=== PATIENT | female | born 1975 | race Caucasian/White ===

== ENCOUNTER 2018-05-14 00:23 | Outpatient (CLI) | payer MEDICAID, SELFPAY ==
--- NOTE | 2018-05-14 12:39 | DI.REPORT_ITS ---
SYMPTOMS/DIAGNOSIS: SCREENING, Z12.31, MOTHER DIAGNOSED WITH MELENDEZ SYNDROME BILATERAL SCREENING MAMMOGRAM: Mammograms were interpreted according to the usual protocol including computer analysis with CAD system, tomosynthesis and C view imaging. The patient states previous exam in [place], [place], which was unable to be located. The breasts are composed of heterogeneously dense fibroglandular tissue, breast density category C. No suspicious masses or suspicious microcalcifications are seen. IMPRESSION: Category 1C, negative mammogram. Yearly screening mammography is recommended. [facility] ASSESSMENT OF FINDINGS: Negative. Category 1. Patient will receive a letter notifying them of these results. Bi-RADS category C. The breasts are heterogeneously dense, which may obscure small masses.
== END 2018-05-14 00:24 ==
PROVIDERS: PCP Family Medicine; Visit Provider Obstetrics & Gynecology Gynecology
DX: Z12.31 Encounter for screening mammogram for malignant neoplasm of breast (principal)
CPT/HCPCS: 77063; 77067

== ENCOUNTER 2018-08-14 08:01 | Emergency (ER) | payer MEDICAID, SELFPAY ==
[2018-08-14 08:41] VITALS: BP 124/87; PULSE 98; RESP 20; TEMP 36.7; O2SAT 98
--- NOTE | 2018-08-14 09:35 | W.ED.GENAD ---
Discharge Plan Disposition Patient Disposition: HOME Condition: Good Discharge Details Chief Complaint: Laceration Clinical Impression: Laceration Primary Care Provider: Hieu Barry ED Provider: Markus Koch Home Meds and New Rx's Prescriptions: No Action diphenhydramine HCl [Z-Sleep] 25 MG capsule 25 mg PO PRN RF: 0 Discharge Instructions Instructions: Laceration (ED) Referrals: [facility] Emergency Dept. [Outside] - Return if symptoms worsen Medical Decision Making Plan to apply LET and close with tissue glue. Pt tolerated closure with tissue glue. Edges well approximated. Wound was cleaned and no FB was visualized or felt. Advised to keep clean and dry. Return if signs of infection develop. HPI General Mode of arrival: ambulatory. Date/Time Provider Initiated Documentation: 08/14/18 09:35. Limitations to Documentation: no limitations. Information obtained by: patient. History of Present Illness 42 year old F presents to the emergency department with the chief complaint of laceration, described as mild, HPI Narrative: 42 y/o female here with c/o right hand laceration. she was preparing to clean her wood stove when she accidental scraped her hand across a piece of plastic/medal edge of her flew. She shows me a picture of the jagged edge of plastic/metal poking out of her stove. Nurse verified her tetanus is up to date. She denies any other injury. Related Data Home Medications Medication Instructions Recorded Confirmed diphenhydramine HCl [Z-Sleep] 25 mg PO PRN 11/15/16 08/14/18 Allergies Allergy/AdvReac Type Severity Reaction Status Date / Time banana Allergy itching Unverified 08/14/18 08:46 eyes latex Allergy rash Unverified 08/14/18 08:46 General Stated Complaint: Laceration JEANETTE: 4 Review of Systems Constitutional Reports as per HPI Integumentary/Breasts Reports wounds (laceration right hand) PFSH Family History Mother Diabetes Essential hypertension Heart disease Hyperlipidemia Neoplasm Asthma Father Diabetes Anxiety Heart disease Neoplasm Cerebrovascular accident Grandfather Diabetes Grandmother Diabetes Cerebrovascular accident Maternal Aunt No problems noted. Brother Diabetes Medical History Abnormal uterine bleeding Insomnia PMDD (premenstrual dysphoric disorder) Surgical History Ligation of fallopian tube cryotherapy (~1994) Exam Const General: cooperative and no acute distress Nutritional Appearance: average body habitus Orientation: alert, awake and oriented x3 Skin Full body images: 1. superficial .25 CM laceration to palm surface. No bleeding. Clear drainage. No redness. Linear with smooth edges. Extrem Right upper extremity: full ROM, normal capillary refill and hand Details: normal capillary refill, neuromotor exam normal, neurosensory exam normal, tendon exam normal, normal ROM of fingers and laceration (.25 cm superficial ); no ecchymosis Course Vital Signs Temperature 36.7 C 08/14/18 08:41 Pulse 98 H 08/14/18 08:41 Respiratory Rate 20 08/14/18 08:41 Blood Pressure 124/87 08/14/18 08:41 Pulse Oximetry 98 08/14/18 08:41 Temperature 36.7 C 08/14/18 08:41 Temperature Source Temporal Artery Scan 08/14/18 08:41 Pulse 98 H 08/14/18 08:41 Respiratory Rate 20 08/14/18 08:41 Respiratory Effort Non-Labored 08/14/18 08:43 Blood Pressure 124/87 08/14/18 08:41 Pulse Oximetry 98 08/14/18 08:41 Oxygen Delivery Method Room Air 08/14/18 08:41 Oxygen Flow Rate 0 08/14/18 08:41 Comment 08/14/18 08:41 Procedures Laceration Laceration 1: Site: hand (.25 superfifical of the velásquez surface. ) Side (If applicable): right Size (cm): 0.25 Description: linear Depth: simple, single layer Local Anesthetic: other anesthetic (LET) Amount of anesthesia used (mL): 0.3 Pre-repair: wound explored (no FB noted) Size (cm): other (tissue glue)
[2018-08-14] MEDS: Lidocaine/Epinephri/Tetracaine Topical Gel 3 ML TP (09:43)
--- NOTE | 2018-08-14 09:44 | ED.GENADUL_ITS ---
Discharge Plan Disposition Patient Disposition: HOME Condition: Good Discharge Details Chief Complaint: Laceration Clinical Impression: Laceration Primary Care Provider: Hieu Barry ED Provider: Markus oKch Home Meds and New Rx's Prescriptions: No Action diphenhydramine HCl [Z-Sleep] 25 MG capsule 25 mg PO PRN RF: 0 Discharge Instructions Instructions: Laceration (ED) Referrals: [facility] Emergency Dept. [Outside] - Return if symptoms worsen Medical Decision Making Plan to apply LET and close with tissue glue. Pt tolerated closure with tissue glue. Edges well approximated. Wound was cleaned and no FB was visualized or felt. Advised to keep clean and dry. Return if signs of infection develop. HPI General Mode of arrival: ambulatory . Date/Time Provider Initiated Documentation: 08/14/18 09:35 . Limitations to Documentation: no limitations . Information obtained by: patient . History of Present Illness 42 year old F presents to the emergency department with the chief complaint of laceration, described as mild, HPI Narrative: 42 y/o female here with c/o right hand laceration. she was preparing to clean her wood stove when she accidental scraped her hand across a piece of plastic/medal edge of her flew. She shows me a picture of the jagged edge of plastic/metal poking out of her stove. Nurse verified her tetanus is up to date. She denies any other injury. Related Data Home Medications Medication Instructions Recorded Confirmed diphenhydramine HCl [Z-Sleep] 25 mg PO PRN 11/15/16 08/14/18 Allergies Allergy/AdvReac Type Severity Reaction Status Date / Time banana Allergy itching Unverified 08/14/18 08:46 eyes latex Allergy rash Unverified 08/14/18 08:46 General Stated Complaint: Laceration JEANETTE: 4 Review of Systems Constitutional Reports as per HPI Integumentary/Breasts Reports wounds (laceration right hand) PFSH Family History Mother Diabetes Essential hypertension Heart disease Hyperlipidemia Neoplasm Asthma Father Diabetes Anxiety Heart disease Neoplasm Cerebrovascular accident Grandfather Diabetes Grandmother Diabetes Cerebrovascular accident Maternal Aunt No problems noted. Brother Diabetes Medical History Abnormal uterine bleeding Insomnia PMDD (premenstrual dysphoric disorder) Surgical History Ligation of fallopian tube cryotherapy (~1994) Exam Const General: cooperative and no acute distress Nutritional Appearance: average body habitus Orientation: alert, awake and oriented x3 Skin Full body images: 2 1. superficial .25 CM laceration to palm surface. No bleeding. Clear drainage. No redness. Linear with smooth edges. Extrem Right upper extremity: full ROM, normal capillary refill and hand Details: normal capillary refill, neuromotor exam normal, neurosensory exam normal, tendon exam normal, normal ROM of fingers and laceration (.25 cm superficial ); no ecchymosis Course Vital Signs Temperature 36.7 C 08/14/18 08:41 Pulse 98 H 08/14/18 08:41 Respiratory Rate 20 08/14/18 08:41 Blood Pressure 124/87 08/14/18 08:41 Pulse Oximetry 98 08/14/18 08:41 Temperature 36.7 C 08/14/18 08:41 Temperature Source Temporal Artery Scan 08/14/18 08:41 Pulse 98 H 08/14/18 08:41 Respiratory Rate 20 08/14/18 08:41 Respiratory Effort Non-Labored 08/14/18 08:43 Blood Pressure 124/87 08/14/18 08:41 Pulse Oximetry 98 08/14/18 08:41 Oxygen Delivery Method Room Air 08/14/18 08:41 Oxygen Flow Rate 0 08/14/18 08:41 Comment 08/14/18 08:41 Procedures Laceration Laceration 1: Site: hand (.25 superfifical of the velásquez surface. ) Side (If applicable): right Size (cm): 0.25 Description: linear Depth: simple, single layer Local Anesthetic: other anesthetic (LET) Amount of anesthesia used (mL): 0.3 Pre-repair: wound explored (no FB noted) Size (cm): other (tissue glue)
== END 2018-08-14 10:09 | disposition home or self-care (01) ==
LOC: ER 10:35
PROVIDERS: Emergency Provider Nurse Practitioner Family; PCP Family Medicine
DX: S61.411A Laceration without foreign body of right hand, initial encounter (principal); W26.8XXA Contact with other sharp object(s), not elsewhere classified, initial encounter
CPT/HCPCS: 12001

== ENCOUNTER 2019-09-18 14:09 | Outpatient (CLI) | payer MEDICAID, SELFPAY ==
[2019-09-18 14:53] LABS: HGB 14.6 g/dL (12.0-15.5); Mean Corp. HGB Concentration 32.4 g/dL (32.0-36.0); Mean Corpuscular Hemoglobin 29.6 pg (27.0-33.0); Mean Corpuscular Volume 91.1 fL (80-95); Mean Platelet Volume 9.9 fL (8.0-11.0); Platelet Count 347 x1000/uL (130-400); RBC 4.94 m/cumm (4.00-5.20); RBC Distribution Width 13.1 % (11.7-14.6); White Blood Cell Count 11.28 k/cumm (4.4-10.8)
[2019-09-18 15:22] LABS: ALT 30 U/L (14-59); AST 15 U/L (15-37); Albumin 4.4 g/dL (3.4-5.0); Alkaline Phosphatase 74 U/L (46-116); Anion Gap 6.5 mmol/L (3-11); BUN 19 mg/dL (7-18); Bilirubin, Total 0.3 mg/dL (0.2-1.0); CO2 31.5 mmol/L (21.0-32.0); CREATININE 0.92 mg/dL (0.55-1.02); Calcium 9.5 mg/dL (8.5-10.1); Chloride 102 mmol/L (98-107); Glucose 93 mg/dL (74-106); Potassium 4.3 mmol/L (3.5-5.1); Sodium 140 mmol/L (136-145); TSH (W/Ref FT4) 5.11 uIU/mL (0.36-3.74); Total Protein 8.2 g/dL (6.4-8.2)
[2019-09-18 16:10] LABS: FREE T4 0.98 ng/dL (0.76-1.46)
== END 2019-09-18 14:29 ==
PROVIDERS: PCP Family Medicine; Visit Provider Obstetrics & Gynecology Gynecology
DX: R23.2 Flushing (principal)
CPT/HCPCS: 36415; 80053; 85027; 82384; 84439; 84443

== ENCOUNTER 2019-09-21 08:21 | Outpatient (REF) | payer MEDICAID, SELFPAY ==
[2019-09-23 13:58] LABS: Urine Volume 900 mL
== END 2019-09-21 08:41 ==
LOC: LBN 08:21
PROVIDERS: PCP Family Medicine; Visit Provider Obstetrics & Gynecology Gynecology
DX: R23.2 Flushing (principal)
CPT/HCPCS: 81050; 82384

== ENCOUNTER 2019-10-02 09:16 | Outpatient (CLI) | payer MEDICAID, SELFPAY ==
[2019-10-05 10:48] LABS: Thyroglobulin Antibody <15 U/mL (<=60); Thyroperoxidase Antibody <28 U/mL (<=60)
== END 2019-10-02 09:36 ==
PROVIDERS: PCP Family Medicine; Visit Provider Obstetrics & Gynecology Gynecology
DX: E03.9 Hypothyroidism, unspecified (principal)
CPT/HCPCS: 36415; 86376

== ENCOUNTER 2019-11-30 09:18 | Outpatient (CLI) | payer MEDICAID, SELFPAY ==
[2019-11-30 11:08] LABS: TSH (W/Ref FT4) 2.46 uIU/mL (0.36-3.74)
== END 2019-11-30 09:38 ==
PROVIDERS: PCP Family Medicine; Visit Provider Obstetrics & Gynecology Gynecology
DX: E03.9 Hypothyroidism, unspecified (principal)
CPT/HCPCS: 36415; 84443

== ENCOUNTER 2020-03-02 11:07 | Outpatient (REF) | payer MEDICAID, SELFPAY ==
[2020-03-02 12:18] LABS: TSH (W/Ref FT4) 2.74 uIU/mL (0.36-3.74)
== END 2020-03-02 11:27 ==
LOC: LBN 11:07
PROVIDERS: PCP Family Medicine; Visit Provider Obstetrics & Gynecology Gynecology
DX: E03.9 Hypothyroidism, unspecified (principal)
CPT/HCPCS: 84443

== ENCOUNTER 2021-08-08 03:31 | Outpatient (CLI) | payer MEDICAID, SELFPAY ==
[2021-08-08 08:40] LABS: ALT 16 U/L (14-59); AST 12 U/L (15-37); Albumin 4.1 g/dL (3.4-5.0); Alkaline Phosphatase 69 U/L (46-116); BUN 17 mg/dL (7-18); Bilirubin, Total 0.3 mg/dL (0.2-1.0); Calcium 9.7 mg/dL (8.5-10.1); Calculated LDL 201 mg/dL (<100); Chloride 104 mmol/L (98-107); Cholesterol 275 mg/dL (<200); Estimated GFR 59.43 (mL/min/1.73m2); Glucose 93 mg/dL (74-106); HDL Cholesterol 36 mg/dL (40-60); Potassium 4.3 mmol/L (3.5-5.1); Sodium 141 mmol/L (136-145); TSH (W/Ref FT4) 2.51 uIU/mL (0.36-3.74); Total Protein 7.7 g/dL (6.4-8.2); Triglyceride 190 mg/dL (<150)
[2021-08-15 13:48] LABS: Testosterone, Free 2.5
[2021-08-15 13:49] LABS: Testosterone, Total 26
== END 2021-08-08 03:32 | disposition home or self-care (01) ==
LOC: LBO 03:31
PROVIDERS: PCP Family Medicine; Visit Provider Family Medicine
DX: E03.9 Hypothyroidism, unspecified (principal); R68.82 Decreased libido; E28.319 Asymptomatic premature menopause
CPT/HCPCS: 36415; 80053; 80061; 84402; 84403; 84443

== ENCOUNTER 2021-08-10 01:01 | Outpatient (CLI) | payer MEDICAID, SELFPAY ==
--- NOTE | 2021-08-10 09:15 | DI.MAMMO_ITS ---
Exam(s) MAMMO SCREENING EXAM: MAMMO SCREENING CLINICAL HISTORY: screening,Z12.39. TECHNIQUE: Bilateral full field digital CC and MLO mammographic images were obtained with 3D tomosyn thesis and utilizing computer aided detection (CAD). COMPARISON: Prior mammogram of May 2018 FINDINGS: The fibroglandular tissue pattern is again noted be moderately dense, this decreasing the sensitivity of the mammogram for finding hidden underlying lesions. There are no CAD designations. There are obvious no new spiculated masses nor malignant appearing microcalcification groups. There is no significant architectural distortion nor skin thickening-retraction. IMPRESSION: Dense bilateral fibroglandular tissue. No obvious radiographic evidence of malignancy no significant change compared to the mammogram of May 2018 BI-RADS Category 1 - Negative Breast Density - Category C - Heterogeneously dense Breast density Category C or D implies that the patient has dense breast tissue. Dense breast tissue can make it harder to find cancer on a mammogram. Dense breast tissue is also associated with an incr eased risk of breast cancer. This information about the result of the mammogram report was provided to the patient to raise their awareness. Use this report when you speak with the patient about their risks for breast cancer, which includes their family history. At that time, you may recommend additional screening tests (Ultrasoun d or MRI) as these tests may add significant information. A negative radiographic report should not delay biopsy if a dominant or clinically suspicious mass is present. Up to ten percent of cancers are not identified on mammography. A negative report may reinforce clinical impression. Adenosis and dense breasts may obscure an underlying neoplasm. False positive reports average 6 to 10%. Patient will receive a letter notifying them of these results.
== END 2021-08-10 01:21 ==
PROVIDERS: PCP Family Medicine; Visit Provider Family Medicine
DX: Z12.31 Encounter for screening mammogram for malignant neoplasm of breast (principal); R92.8 Other abnormal and inconclusive findings on diagnostic imaging of breast
CPT/HCPCS: 77063; 77067

== ENCOUNTER 2023-01-17 10:36 | Outpatient (REF) | payer MEDICAID, SELFPAY ==
--- NOTE | 2023-01-17 08:50 | ENDOMET_PTH ---
PATIENT: Cheli Back LOC: [facility] U#:[id number] AGE/SX: 47/F ROOM: RE01/17/[address]: Belinda Tripp MD : 1975 BED: DIS: 01/17/2023 SPEC #: [id number] RECD: 01/17/23 12:59 STATUS: JEREMY REQ #: [id number] SUBHA: 01/17/23 08:[address]: Belinda Tripp DEPT: Surgical Specimen RECD BY: Gardenia Clay ENTERED: 01/17/23 12:59 SP TYPE: Endomet OTHR DR: Hieu Barry DO Tissues: 1 - ENDOMETRIUM BX/DELMYETTE Procedures: GROSS AND MICRO LEVEL 4 Comments: [id number]
== END 2023-01-17 10:37 | disposition home or self-care (01) ==
LOC: LBN 10:36
PROVIDERS: PCP Family Medicine; Visit Provider Obstetrics & Gynecology
DX: N95.0 Postmenopausal bleeding (principal); N85.8 Other specified noninflammatory disorders of uterus
CPT/HCPCS: 88305

== ENCOUNTER 2023-03-05 01:00 | Outpatient (CLI) | payer MEDICAID, SELFPAY ==
--- NOTE | 2023-03-05 07:00 | DI.US_ITS ---
Exam(s) US PELVIS TRANSVAGINAL EXAM: US PELVIS TRANSVAGINAL CLINICAL HISTORY: POSTMENOPAUSAL BLEEDING,N95.0. TECHNIQUE: Transabdominal and transvaginal pelvic ultrasound was performed using standard protocol. COMPARISON: CT ABD PELVIS WITH CONTRAST from 10/30/2017 FINDINGS: UTERUS: Position: Anteverted. Size: 6.7 long by 3.9 AP by 4.1 transverse cm Endometrium: 0.9 cm. It is homogeneous. This is thickened in a postmenopausal patient. Myometrium: Unremarkable. Cervix: Unremarkable. OVARIES: There is limited visualization of the right ovary due to overlying bowel gas. Right: 2.5 x 1.6 x 1.6 cm Cyst or mass: No suspicious cystic or solid masses. Left: 2.4 x 2.1 x 2.8 cm Cyst or mass: No suspicious cystic or solid masses. DOPPLER: Color: Blood flow seen to the left ovary. Evaluation of the right ovary was compromised secondary to overlying bowel gas. CUL-DE-SAC: Free fluid: None. Other: None. IMPRESSION: 1. Normal appearance of the uterus. 2. Thickened endometrial stripe is 0.9 cm in this postmenopausal patient. No definite discrete mass is seen. Further evaluation with follow-up pelvic ultrasound or biopsy should be considered. 3. Unremarkable bilateral ovaries. DATA REPOSITORY:
--- NOTE | 2023-03-05 08:43 | DI.MAMMO_ITS ---
Exam(s) MAMMO SCREENING EXAM: MAMMO SCREENING CLINICAL HISTORY: screening,Z12.39 TECHNIQUE: Bilateral full field digital CC and MLO mammographic images were obtained with 3D tomosyn thesis and utilizing computer aided detection (CAD). COMPARISON: Available for comparison. FINDINGS: Masses/Architectural Distortion: None seen. Microcalcifications: No suspicious pleomorphic-type are seen. Skin Thickening/Nipple Retraction: None. IMPRESSION: 1. No significant interval change with no specific features of malignancy noted. 2. Unless there is more urgent need, screening mammography is recommended, as per [employer] guidelines. BI-RADS Category 1 - Negative Breast Density - Category C - Heterogeneously dense Breast density category C or D implies that the patient has dense breast tissue. Dense breast tissue is very common and is not abnormal but dense breast tissue can make it harder to find cancer on a ma mmogram. Also, dense breast tissue may increase their breast cancer risk. This information about the result of the mammogram report was provided to the patient to raise their awareness. Use this report when you speak with the patient about their risks for breast cancer, which includes their family hist ory. At that time, you may recommend for more screening tests (Ultrasound or MRI) as they might be us eful based on their risk. A negative radiographic report should not delay biopsy if a dominant or clinically suspicious mass is present. Up to ten percent of cancers are not identified on mammography. A negative report may reinforce clinical impression. Adenosis and dense breasts may obscure an underlying neoplasm. False positive reports average 6 to 10%. Patient will receive a letter notifying them of these results.
== END 2023-03-05 01:20 ==
LOC: DI 01:01
PROVIDERS: PCP Family Medicine; Visit Provider Obstetrics & Gynecology
DX: Z12.31 Encounter for screening mammogram for malignant neoplasm of breast (principal); N95.0 Postmenopausal bleeding
CPT/HCPCS: 77063; 77067; 76830; 76856

== ENCOUNTER 2023-06-02 06:47 | Emergency (ER) | payer MEDICAID, SELFPAY ==
[2023-06-02 06:53] VITALS: BP 118/65; PULSE 79; RESP 16; TEMP 36.8; O2SAT 97
--- NOTE | 2023-06-02 07:00 | DI.CT_ITS ---
Exam(s) CT ABDOMEN PELVIS W EXAM: CT ABDOMEN PELVIS W CLINICAL HISTORY: n/v, lower abdominal pain. TECHNIQUE: Imaging Protocol: Axial computed tomography images with coronal and sagittal reformatted images were created and reviewed CONTRAST MATERIAL: Intravenous: Omnipaque-350 100cc Oral: None COMPARISON: CT ABD PELVIS WITH CONTRAST from 10/30/2017 FINDINGS: VISUALIZED LUNG BASES: No nodules nor pleural effusions evident. ABDOMEN: There is no ascites. LIVER: There are no focal hepatic lesions evident. No dilated intrahepatic ducts. GALLBLADDER/BILIARY: No obvious gallbladder pathology. CBD is not dilated. PANCREAS: No evidence of pancreatic mass nor dilatation of the pancreatic duct. SPLEEN: Spleen is not enlarged. No obvious intrasplenic lesions. Splenic and portal veins are paten t. ADRENALS: There are no significant adrenal masses. KIDNEYS:No cysts evident. No solid renal masses. No calculi nor hydronephrosis.. ABDOMINAL AORTA: Abdominal aorta is not enlarged. LYMPH NODES:There is no retroperitoneal nor paraaortic adenopathy. ABDOMINAL WALL: No evidence of significant anterior abdominal wall nor inguinal hernia. GI: There is a mild enteritis pattern seen throughout these small bowel loops. Small bowel diameters are upper normal. There is diffuse small bowel wall fold thickening. There may be slight involveme nt of the right-side of the colon. There is no ascites. PELVIS: GI: No evidence of appendicitis.No evidence of sigmoid diverticulitis. LYMPH NODES: There is no intrapelvic nor inguinal adenopathy. REPRODUCTIVE: Uterus normal size and anteverted. Right adnexa unremarkable. There is a cyst in the left ovary which measures 2 by 1.8 cm and there is also a 6 x 5 mm adjacent calcification. No fat de nsity. URINARY BLADDER: No calculi nor obvious masses evident OSSEOUS: No fractures and no significant osseous lesions. No evidence of sacroiliitis. IMPRESSION: 1. There is a nonspecific small bowel enteritis pattern. Also possible mild colitis involving the as cending-right side of the colon. No evidence of appendicitis nor diverticulitis. No ascites. RADIATION DOSE DELIVERED: 527.81mGy.cm Total DLP DATA REPOSITORY: All CT scans at this facility are submitted to the National Radiology Data Registry (NRDR) Dose Index Registry (DIR) with the [employer] (A[employer]). RADIATION OPTIMIZATION: All CT scans at this facility use at least one of these dose optimization te chniques: automated exposure control; mA and/or kV adjustment per patient size (includes targeted exa ms where dose is matched to clinical indication); or iterative reconstruction.
--- NOTE | 2023-06-02 07:08 | ED.GENADUL_ITS ---
Discharge Plan Discharge Details Chief Complaint: Nausea/Vomit/Diar Clinical Impression: Nausea vomiting and diarrhea, Abdominal pain Primary Care Provider: Hieu Barry ED Provider: Markus Bullard Home Meds and New Rx's Prescriptions: No Action estradiol 0.01 % (0.1 mg/gram) cream 1 g vaginal DAILY Qty: 42.5 0RF Rx Instructions: for 14 days. Then decrease use to twice weekly. diphenhydramine HCl [Z-Sleep] 25 MG capsule 25 mg PO PRN clonidine HCl 0.1 mg tablet 0.1 mg PO QHS Qty: 60 5RF levothyroxine [Levoxyl] 25 mcg tablet 25 mcg PO DAILY Qty: 60 5RF atorvastatin 20 mg tablet 20 mg PO QHS Qty: 90 3RF Medical Decision Making 47 yo female with hx of anxiety, daily marijuana use, who comes in with cc of n/v/d for 3 days worse in the morning. Denies fevers, chills, known sick contacts, recent travel. She can't think of anything that makes the symptoms better or worse. She is stable on arrival. Her abdomen is soft but she is tender in the rlq and llq without guarding or rebound. Suspect gastroenteritis given the diarrhea associated with it, but given her tenderness on exam will proceed with cbc, cmp, lipase and ct abd/pelvis to evaluate for diverticulitis and appendicitis, unlikely sbo with the diarrhea. This could be cannabinoid hyperemesis syndrome but will exclude other etiologies first pt signed out to oncoming provider pending labs, imaging and reassessment. Differential Diagnosis Differential Diagnosis: gastroenteritis, diverticulitis, appendicitis Medical Records Medical records reviewed: Yes I reviewed the patient's medical records. Lab Data Lab results reviewed: Yes I reviewed the patient's lab results. HPI General Mode of arrival: ambulatory . Date/Time Provider Initiated Documentation: 06/02/23 06:48 . Limitations to Documentation: no limitations . Information obtained by: patient . History of Present Illness 47 year old F presents to the emergency department with the chief complaint of n/v/d, described as moderate, Patient started experiencing this day(s) (3) and it has been constant. No relieving factors improve symptom(s), No exacerbating factors reported . Patient did receive the following treatments prior to arrival, none Related Data Home Medications Medication Instructions Recorded Confirmed diphenhydramine HCl 25 mg capsule 25 mg PO PRN 11/15/16 06/02/23 (Z-Sleep) clonidine HCl 0.1 mg tablet 0.1 mg PO QHS #60 tabs 08/09/22 06/02/23 levothyroxine 25 mcg tablet 25 mcg PO DAILY #60 tabs 12/24/22 06/02/23 (Levoxyl) estradiol 0.01% (0.1 mg/gram) 1 g vaginal DAILY #42.5 grams 03/13/23 06/02/23 vaginal cream atorvastatin 20 mg tablet 20 mg PO QHS #90 tabs 05/06/23 06/02/23 Previous Rx's Medication Instructions Recorded clonidine HCl 0.1 mg tablet 0.1 mg PO QHS #60 tabs 08/09/22 levothyroxine 25 mcg tablet 25 mcg PO DAILY #60 tabs 12/24/22 (Levoxyl) estradiol 0.01% (0.1 mg/gram) 1 g vaginal DAILY #42.5 grams 03/13/23 vaginal cream atorvastatin 20 mg tablet 20 mg PO QHS #90 tabs 05/06/23 Allergies Allergy/AdvReac Type Severity Reaction Status Date / Time capsaicin Allergy Severe rash, Verified 06/02/23 06:57 difficulty breathing banana Allergy itching Verified 06/02/23 06:57 eyes latex Allergy rash Verified 06/02/23 06:57 General Stated Complaint: Nausea/Vomit/Diar JEANETTE: 3 Review of Systems All systems reviewed & are unremarkable except as noted in HPI and below Constitutional Constitutional: Denies chills, Denies fever(s) and Denies weakness Cardiovascular Cardiovascular: Denies chest pain and Denies dyspnea Respiratory Respiratory: Denies cough and Denies dyspnea Gastrointestinal Gastrointestinal: Reports abdominal pain, Reports nausea and Reports vomiting Genitourinary Genitourinary: Denies dysuria Integumentary/Breasts Skin/Breast: Denies rash Neurologic Neurologic: Denies weakness PFSH All Active Problems (Updated 06/02/23 @ 07:12 by Markus Bullard MD) Hypothyroidism (acquired) (Acute) 10/02/2019 TSH 5.11. FT4 0.98 11/30/2019. Symptoms improved with 25 MCG Levoxyl dose Hyperlipidemia (Acute) Postmenopausal atrophic vaginitis (Acute) Nausea vomiting and diarrhea (Acute) Abdominal pain (Acute) Medical History (Updated 06/02/23 @ 07:12 by Markus Bullard MD) Anxiety (10/18/17) Depression (10/18/17) Family history of uterine cancer pt's mom and several aunts and MGM. Her mom has a genetic mutation. Pt has not been tested. Insomnia hx of sleepwalking. Postmenopausal bleeding Started 01/11 - normal sono and endo bx. Should call if returns Surgical History (Updated 07/30/18 @ 14:37 by [employer]) cryotherapy (~1994) due to abnormal pap so had cryotherapy RH Ligation of fallopian tube Family History (Updated 01/17/23 @ 09:06 by Belinda Tripp MD) Mother Diabetes Essential hypertension Heart disease Hyperlipidemia Neoplasm Uterine cancer 2017, carrier of [place] Syndrome Had hysterectomy, no chemo/radiation Asthma Father , Lymphoma Diabetes Anxiety Heart disease Neoplasm Stroke Grandfather Diabetes Grandmother Diabetes Stroke Maternal Aunt , Breast CA. Neoplasm Several aunts with uterine cancer as well Brother Diabetes Social History (Updated 07/17/21 @ 14:08 by Zuri Acuna LPN) Smoking/Tobacco Use Status: Current every day Tobacco Type: e-cigarettes Smokeless tobacco user: other Smoking risk assessment performed?: Yes Alcohol Intake: never Drug use: Daily Substance use type: marijuana and other Details: edibles Household members: significant other Housing: house Communication Needs: None Education Level: college Pets and animals: Yes Pets and animals: cat(s) and dog(s) What is your relationship status?: living with partner Panel score (0-1 are the most socially isolated patients): 1 What type of physical activity do you participate in: walking Frequency: daily Do you feel safe at home: Yes Do you feel safe in your relationship?: Yes Female Reproductive History Menstrual Date of menopause: 11/14/19 History History 4 Para Hx # Term Pregnancies 3 Multiple births Hx # Pregnancies Ectopic pregnancies AB induced Hx Number of Living Children AB spontaneous Exam Const General: no acute distress Orientation: alert HENMT Head: normal to inspection Ears: external ears normal General nose exam: external nose normal Mouth: moist mucous membranes Eyes General: appearance normal, both eyes and all related structures Neck Neck: normal visual inspection Resp Effort & Inspection: normal respiratory effort and able to speak in complete sentences Cardio Rate: regular rate GI Palpation: soft, not firm, no guarding and tender Skin General skin exam: no rashes or lesions noted Neuro General: patient alert and patient oriented x3 Extrem General: normal to inspection Psych Mental Status: mental status grossly normal Course Vital Signs Vital signs: Vital Signs Temperature 36.8 C 06/02/23 06:53 Pulse 79 06/02/23 06:53 Respiratory Rate 16 06/02/23 06:53 Blood Pressure 118/65 06/02/23 06:53 Pulse Oximetry 97 06/02/23 06:53 Temperature 36.8 C 06/02/23 06:53 Temperature Source Oral 06/02/23 06:53 Pulse 79 06/02/23 06:53 Respiratory Rate 16 06/02/23 06:53 Respiratory Effort Normal, Non-Labored 06/02/23 06:57 Blood Pressure 118/65 06/02/23 06:53 Blood Pressure Position Sitting 06/02/23 06:53 Pulse Oximetry 97 06/02/23 06:53 Oxygen Delivery Method Room Air 06/02/23 06:53 Oxygen Flow Rate 0 06/02/23 06:53
[2023-06-02] MEDS: Droperidol 5 MG/2 ML VIAL 2.5 MG IVP (07:18)
[2023-06-02] MEDS: Normal Saline 1,000 ML 1000 ML IV (07:18)
[2023-06-02 07:24] LABS: Abs Immature Grans 0.03 10^3/uL (0.0-0.06); Absolute Eosinophil Count 0.31 10^3/uL (0.0-0.7); Absolute Lymphocyte Count 2.09 10^3/uL (1.2-3.4); Absolute Monocyte Count 0.73 10^3/uL (0.1-0.8); Absolute Neutrophil Count 10.81 10^3/uL (1.2-6.7); Basophils % 0.4; Eosinophils % 2.2; HGB 13.9 g/dL (11.2-15.7); Immature Grans % 0.2; Lymphocytes % 14.9; MCH 29.3 pg (27.0-33.0); MCHC 32.3 % (32.0-36.0); MCV 91 fL (80-95); MPV 9.5 fL (8.0-11.0); Monocytes % 5.2; Neutrophils % 77.1; Platelet Count 305 10^3/uL (130-400); RBC 4.74 10^6/uL (3.93-5.22); RDW 12.7 % (11.7-14.6); RDW-SD 42.4 fL; WBC 14.02 10^3/uL (4.4-10.8)
[2023-06-02 07:27] LABS: Absolute Basophil Count 0.06 10^3/uL (0.0-0.2)
[2023-06-02 07:55] LABS: ALT 26 U/L (14-59); AST 22 U/L (15-37); Albumin 4.1 g/dL (3.4-5.0); Alkaline Phosphatase 87 U/L (46-116); Anion Gap 11.5 mmol/L (3-11); BUN 14 mg/dL (7-18); Bilirubin, Total 0.5 mg/dL (0.2-1.0); CO2 24.5 mmol/L (21.0-32.0); CREATININE 0.8 mg/dL (0.55-1.02); Chloride 106 mmol/L (98-107); Estimated GFR 90.27 (mL/min/1.73m2); Glucose 103 mg/dL (74-106); Lipase 63 U/L (16-77); Magnesium 2.2 mg/dL (1.8-2.4); Potassium 3.7 mmol/L (3.5-5.1); Sodium 142 mmol/L (136-145); TSH (W/Ref FT4) 1.33 uIU/mL (0.36-3.74); Total Protein 7.8 g/dL (6.4-8.2)
[2023-06-02] MEDS: LORazepam 2 MG/ML VIAL 1 MG IVP (08:10)
[2023-06-02] MEDS: diphenhydrAMINE 50 MG/ML VIAL 25 MG IVP (08:15)
[2023-06-02 08:19] LABS: Bilirubin Negative (Negative); Blood Negative (Negative); Clarity Clear (Clear); Glucose Negative (Negative); Ketones Negative (Negative); Leukocyte Esterase Negative (Negative); Nitrite Negative (Negative); Specific Gravity <= 1.005 (1.005-1.025); Urobilinogen 0.2 mg/dL (Up to 0.2); pH 5.5 (5-8)
[2023-06-02] MEDS: Normal Saline Flush 10 ML SYR IVP (08:55)
[2023-06-02] MEDS: Normal Saline - Diluent 50 ML VIAL IJ (08:57)
[2023-06-02] MEDS: Omnipaque 350 MG/ML 100 ML BTL IJ (08:59)
--- NOTE | 2023-06-02 09:24 | DI.VRAD_ITS ---
PROCEDURE INFORMATION: Exam: CT Abdomen And Pelvis With Contrast Exam date and time: 06/02/2023 8:59 AM Age: 47 years old Clinical indication: Other: N/v, lower abdominal pain TECHNIQUE: Imaging protocol: Computed tomography of the abdomen and pelvis with contrast. Radiation optimization: All CT scans at this facility use at least one of these dose optimization techniques: automated exposure control; mA and/or kV adjustment per patient size (includes targeted exams where dose is matched to clinical indication); or iterative reconstruction. Contrast material: OMNIPAQUE 350; Contrast volume: 80 ml; Contrast route: INTRAVENOUS (IV); COMPARISON: CT ABD PELVIS WITH CONTRAST 10/30/2017 10:42 AM FINDINGS: Liver: Normal. No mass. Gallbladder and bile ducts: Normal. No calcified stones. No ductal dilation. Pancreas: Normal. No ductal dilation. Spleen: Normal. No splenomegaly. Adrenal glands: Normal. No mass. Kidneys and ureters: Normal. No hydronephrosis. Stomach and bowel: Fluid-filled small bowel loops and proximal colon without wall thickening or significant inflammatory change. No bowel obstruction. May be nonspecific enteritis/colitis. Appendix: No evidence of appendicitis. Intraperitoneal space: Mild mesenteric edema noted. Vasculature: Unremarkable. No abdominal aortic aneurysm. Lymph nodes: Unremarkable. No enlarged lymph nodes. Urinary bladder: Unremarkable as visualized. Reproductive: Unremarkable as visualized. Bones/joints: Unremarkable. No acute fracture. Soft tissues: Unremarkable. IMPRESSION: Fluid-filled small bowel loops and proximal colon without wall thickening or significant inflammatory change. Mild mesenteric edema noted. No bowel obstruction. May be nonspecific enteritis/colitis. Dictated and Authenticated by: Angelic Fragoso MD. Ordering:SARA Aparicio MD
--- NOTE | 2023-06-02 10:13 | W.EDPROG ---
Date of service: 06/02/23 Time of Service: 10:13 Medical Decision Making Resting comfortably no acute distress. Evidence of enteritis on CT scan. No further vomiting. Nausea controlled. Sign Out Sign Out Data: Sign Out Comment: n/v/d and abdominal pain for 3 days, is tender in the rlq and llq. Pending labs, CT and reassessment after fluids and droperidol. Is daily marijuana user. Last updated by Markus Bullard MD at 06/02/23 07:13 Discharge Plan Disposition Patient Disposition: Home Condition: Improving Discharge Details Chief Complaint: Nausea/Vomit/Diar Clinical Impression: Nausea vomiting and diarrhea, Abdominal pain, Enteritis Primary Care Provider: Hieu Barry ED Provider: Chavez Conrad Home Meds and New Rx's Prescriptions: No Action estradiol 0.01 % (0.1 mg/gram) cream 1 g vaginal DAILY Qty: 42.5 0RF Rx Instructions: for 14 days. Then decrease use to twice weekly. diphenhydramine HCl [Z-Sleep] 25 MG capsule 25 mg PO PRN clonidine HCl 0.1 mg tablet 0.1 mg PO QHS Qty: 60 5RF levothyroxine [Levoxyl] 25 mcg tablet 25 mcg PO DAILY Qty: 60 5RF atorvastatin 20 mg tablet 20 mg PO QHS Qty: 90 3RF Discharge Instructions Instructions: Gastroenteritis (DC)
== END 2023-06-02 10:41 | disposition home or self-care (01) ==
PROVIDERS: Emergency Medicine; Emergency Provider Emergency Medicine; PCP Family Medicine
DX: R11.2 Nausea with vomiting, unspecified (principal); R19.7 Diarrhea, unspecified; E78.5 Hyperlipidemia, unspecified; E03.9 Hypothyroidism, unspecified; F17.290 Nicotine dependence, other tobacco product, uncomplicated
CPT/HCPCS: 80053; 83690; 96374; 96375; 99285; 74177; 81003; 83735; 84443; 85025; 99283; J1200; J1790; J2060; J3490

== ENCOUNTER 2023-07-05 09:05 | Day surgery (SDC) | payer MEDICAID, SELFPAY ==
--- NOTE | 2023-07-04 14:02 | W.PM.DSUDISC ---
Date of service: 07/05/23 Time of Service: 12:28 Discharge Plan Disposition Patient Disposition: Home Condition: Good Discharge Details Reason For Visit: EGD and colonoscopy Attending Provider: Preet Barba Primary Care Provider: Hieu Barry Home Meds and New Rx's Prescriptions: Continued diphenhydramine HCl [Z-Sleep] 25 MG capsule 25 mg PO PRN clonidine HCl 0.1 mg tablet 0.1 mg PO QHS Qty: 60 5RF levothyroxine [Levoxyl] 25 mcg tablet 25 mcg PO DAILY Qty: 60 5RF atorvastatin 20 mg tablet 20 mg PO QHS Qty: 90 3RF ondansetron 4 mg tablet,disintegrating 4 mg PO Q8H PRN (Reason: nausea and vomiting) Qty: 20 6RF Discontinued polyethylene glycol 3350 17 gram/dose powder 238 g PO ONCE Qty: 238 0RF Rx Instructions: take per colonoscopy instructions bisacodyl [Dulcolax (bisacodyl)] 5 mg tablet,delayed release (DR/EC) 5 mg PO ONCE Qty: 4 0RF Rx Instructions: take per colonoscopy instructions Discharge Instructions Additional Instructions: For, we were able to complete your upper and lower endoscopies today without any difficulty. You do have a small hiatal hernia, which occurs when the top part of your stomach slips above your diaphragm muscle. Yours is very mild, and I do not believe that it contributes much to any of your symptoms. The rest of your upper endoscopy looked pretty good. I did do some biopsies like we talked about beforehand. Your colonoscopy showed a little bit of inflammation in your rectum. This can occur even as a result of the bowel prep itself. However, a little bit of it did seem consistent with Crohn's disease, which would fit with some of your other symptoms. Similarly, the last part of your small intestine, called your terminal ileum looked mildly inflamed as well. I did some biopsies of the terminal ileum, as well as the rest of your colon. Again, this will be helpful in terms of figuring out whether or not Crohn's disease explains your symptoms. Incidentally, you had 2 small polyps in your rectum. Similar to the hiatal hernia, I do not think these really explain your symptoms. Regardless, we will find out the nature of the polyps once the pathology report is available. I made an appointment with you in the office on July 17 at 10:45 AM, and we can review everything at that time and make a plan moving forward. Hopefully, I will get the biopsy results before that, and I will be sure to let you know once they are available. 1. If tolerated, consume a soft, low fiber diet for 1-2 days. 2[address] Do not drive, drink alcohol, operate machinery, make critical decisions, or do activities that require coordination or balance for 24 hours. 3. Because air was put into your colon during the procedure, expelling air from your rectum (passing gas or farting) is normal. 4. You may not have a bowel movement for 1-3 days because of the colonoscopy prep. This is normal. 5. You may experience a sore throat for 24 to 48 hours. You may use throat lozenges or gargle with warm salt water to relieve the discomfort. 6. Because air was put into your stomach during the procedure, you may experience some belching. 7. Go directly to the emergency room if you notice any of the following: Develop chills (warm to touch), or if you have a thermometer and your temperature is above 101 Difficulty breathing or difficultly swallowing Persistent vomiting Severe abdominal pain, other than gas cramps Severe chest pain Black, tarry stools Any bleeding ? exceeding one tablespoon 8. Call your physician if the site where your intravenous was started becomes red, swollen, painful, and warm to touch. 9. Your physician has reviewed your pre-procedure medications. Please continue to take those medications as previously ordered. You will be given specific information/education regarding any changes to your medications before leaving. Activity:: Activity as Tolerated Diet:: As Tolerated Discharge Orders Discharge Orders: Discharge Order (Routine); Ordered 07/04/23 Ordered By: Preet Barba DS: Diagnosis Discharge Diagnosis (1) Enteritis: Status: Inactive Asessment and Plan: Follow-up on biopsy results
--- NOTE | 2023-07-04 14:16 | COLE_ITS ---
Date of service: 07/05/23 Time of Service: 12:29 Colonoscopy Report Date of procedure: 07/05/23 Pre-op diagnosis general: Enteritis Post-op diagnosis procedure note: other (Hiatal hernia, proctitis and terminal ileitis) Procedure: EGD with biopsies and colonoscopy with polypectomy and biopsies Surgeon: Preet Barba Anesthesia Type: General:No Airway Estimated blood loss (mL): 15 Pathology: other (Random biopsies of duodenum, gastric antrum and body, GE junction; rectal polypectomy x2, biopsies of terminal ileum, random colon biopsies, rectal biopsies) Complications: None Disposition: same day Indications: Maribell is a 47-year-old woman with nausea vomiting diarrhea, and a CT scan raising the possibility of enteritis. Prep: Miralax/Dulcolax Procedure Start Time: 11:40 Procedure End Time: 12:09 Retraction Time: 7 Findings: Hill 3 hiatal hernia; proctitis, rectal polyps x2, terminal ileitis Procedure Description: After the initiation of monitored anesthetic care, and with the assistance of a bite block, I advanced a standard gastroscope through the mouth past the hypopharynx and into the esophagus.? Under the direct vision of the scope, I advanced down the esophagus into the stomach.? Once I entered the stomach, I performed a brief inspection, followed by retroflexion towards the gastric cardia.? There is a Hill grade 3 hiatal hernia.? After that, I gently advanced the scope around the incisura angularis and examined the pylorus.? This also appeared normal.? Next, I advanced the scope through the pylorus into the duodenum.? The mucosa was pink and healthy appearing.? There were no abnormalities.? I was able to visualize bile draining into the duodenum through the ampulla Vater. ?I perform random biopsies of the duodenum with cold forceps. There was minimal bleeding. Next, I began retracting the endoscope.? I brought the camera back into the stomach, and perform random biopsies of the gastric antrum and body using cold forceps. There was minimal bleeding. I desufflated the stomach, and brought the camera up to the GE junction. The Z-line had very minimal irregularity, with the GE junction measuring around 36 cm. There was a little bit of variability because of the hiatal hernia. I did perform biopsies of the GE junction. Next, I brought the camera out along the length of the esophagus, and the remainder of this was normal. We then moved to [facility] into the left lateral decubitus position, I began by performing an external anorectal exam.? Perineum and skin were normal, as was the anal verge.? There are small external hemorrhoids.? Next, I performed a digital rectal exam.? This was normal.? Next, I advanced a colonoscope into the rectal vault.? I performed retroflexion.? There was mild inflammation of the rectum without ulceration or crypt formation excellent.? Using insufflation, I then advanced the colonoscope beyond the rectal folds and into the sigmoid colon before advancing towards the cecum.? The quality of the prep was .? The scope was noted to be in the cecum by identification of the ileocecal valve and appendiceal orifice. I cannulated the terminal ileum which appeared inflamed. There did appear to be some cryptic changes. I performed biopsies of the ter gerber ileum using cold forceps. There was minimal bleeding. I then began withdrawing the colonoscope using repeated irrigation as necessary for full evaluation of the colonic mucosa. Generally, the length of the colonic mucosa did appear normal. I did perform some random biopsies along the way. Once the scope was withdrawn to the level of the rectum, great care was taken to examine portions of the rectal folds. There were 2 sessile rectal polyps. Both were less than 0.25 cm. I removed both with cold forceps.? I also performed biopsies of the inflamed rectum. Finally, the scope was withdrawn and the patient was brought to the same-day surgery recovery unit as the anesthetic wore off. ?The findings and instructions were shared with the patient prior to discharge.
[2023-07-05 09:30] VITALS: BP 117/66; PULSE 62; RESP 16; TEMP 36.6; O2SAT 96
[2023-07-05] MEDS: Lactated Ringers 1,000 ML 80 ML IV (09:47)
--- NOTE | 2023-07-05 11:16 | W.ANESPRE ---
General Info Date of Service Date Performed: 07/05/23 Height: 5 ft 4 in Weight: 46.3 kg Body Mass Index (BMI): 17.5 Surgical Procedure: Operation Date: 07/05/23 10:35 Proposed Procedure Side Surgeon p Colonoscopy/Gastroscopy Preet Barba MD Actual Procedure Side Surgeon p Colonoscopy/Gastroscopy Not Applicable Preet Barba MD Pre-Op Diagnosis Post-Op Diagnosis NAUSEA, VOMITING, DIARRHEA NAUSEA, VOMITING, DIARRHEA Meds Allergies and Home Medications Allergies Allergy/AdvReac Type Severity Reaction Status Date / Time capsaicin Allergy Severe rash, Verified 07/05/23 09:35 difficulty breathing banana Allergy itching Verified 07/05/23 09:35 eyes latex Allergy rash Verified 07/05/23 09:35 Home Medication Medication Instructions Recorded diphenhydramine HCl 25 mg capsule 25 mg PO PRN 11/15/16 (Z-Sleep) clonidine HCl 0.1 mg tablet 0.1 mg PO QHS #60 tabs 08/09/22 levothyroxine 25 mcg tablet 25 mcg PO DAILY #60 tabs 12/24/22 (Levoxyl) atorvastatin 20 mg tablet 20 mg PO QHS #90 tabs 05/06/23 ondansetron 4 mg disintegrating 4 mg PO Q8H PRN nausea and 06/21/23 tablet vomiting #20 tabs Current Visit Medications: Current Medications Generic Name Dose Route Start Last Admin Trade Name Freq PRN Reason Stop Dose Admin Hyoscyamine Sulfate 0.125 mg 07/04/23 14:18 Hyoscyamine 0.125 Mg Sl/Oral/Chew SL 08/03/23 14:17 DIRECTED PRN Ringer's Solution 1,000 mls @ 80 mls/hr 07/05/23 06:00 07/05/23 09:47 IV 07/05/23 16:00 80 mls/hr INFUSION PORTER Administration IV Miscellaneous Supplies 1 each 07/05/23 06:00 Iv Access IV 07/05/23 16:00 DIRECTED PORTER Ondansetron HCl 4 mg 07/04/23 14:18 Ondansetron 4 Mg/2 Ml Vial IVP 08/03/23 14:17 Q4H PRN PRN Nausea / Vomiting Sodium Chloride 0 ml 07/05/23 06:00 Normal Saline Flush 10 Ml Syr IV 07/05/23 16:00 PRN PRN Sodium Chloride 0 ml 07/05/23 06:00 Normal Saline 10 Ml Vial IJ 07/05/23 16:00 DIRECTED PRN Sterile Water 0 ml 07/05/23 06:00 Water,Injection,Sterile 10 Ml Vial IJ 07/05/23 16:00 DIRECTED PRN PFSH Active Problems Active Problems: Problem Status Onset Code Hypothyroidism (acquired) E03.9 Hyperlipidemia E78.5 Postmenopausal atrophic vaginitis N95.2 Left ovarian cyst N83.202 Medical History Medical History Anxiety (10/18/17) Depression (10/18/17) Family history of uterine cancer pt's mom and several aunts and MGM. Her mom has a genetic mutation. Pt has not been tested. Insomnia hx of sleepwalking. Postmenopausal bleeding Started 01/11 - normal sono and endo bx. Should call if returns Medical History Comments:: Pt. states her finacee will call her to check on her during the day, and her stepson will stop by to physically check on her. Surgical History Surgical History cryotherapy (~1994) due to abnormal pap so had cryotherapy RH Ligation of fallopian tube Tobacco Smoking/Tobacco Use Status: Current every day Tobacco Type: e-cigarettes Smokeless tobacco user: other Alcohol Alcohol Intake: never Substance Use Substance use: Daily Substance use type: marijuana and other Details: edibles Prental History History 4 Para Hx # Term Pregnancies 3 Multiple births Hx # Pregnancies Ectopic pregnancies AB induced Hx Number of Living Children AB spontaneous Vital Signs and Lab Results Vital Signs Most Recent Vital Signs in EMR: Most Recent Vital Signs Temp Pulse Resp BP Pulse Ox 36.6 C 62 16 117/66 96 07/05/23 09:30 07/05/23 09:30 07/05/23 09:30 07/05/23 09:30 07/05/23 09:30 Lab Results Blood Type / Crossmatch: No Data to Display Complete Blood Count: No Data to Display Complete Metabolic Panel: No Data to Display Liver Function Panel: No Data to Display Coagulation Panel: No Data to Display Cardiac Panel: No Data to Display Arterial Blood Gas: No Data to Display Venous Blood Gas: No Data to Display Pancreas Panel: No Data to Display Thyroid Panel: No Data to Display Infectious Disease: No Data to Display Blood Cultures: No Data to Display Toxicology Panel: No Data to Display Panel: No Data to Display Anesthesia Assessment and Plan Anesthesia History Personal History: No History of Anesthesia Complications Family History: No Family History of Anesthesia Complications Exercise Tolerance Exercise Tolerance: Metabolic Equivalents>4 Pertinent Negatives Pertinent Negatives: No Symptoms of GERD Cardiac & Pulmonary Exam Cardiac Exam: Normal S1/S2 Heart Sounds Pulmonary Exam: Clear Bilateral Breath Sounds Implantable Cardiac Device Does patient have a Pacemaker or an ICD?: No Airway Exam Known Difficult Airway: No Mallampati Class: 1 Mouth Opening: Normal (> 3cm) Thyromental Distance: Greater than 3 cm Neck Range of Motion: Full ROM Neck Circumference: Normal Teeth Condition: Normal Dentition ASA Classification ASA Score: ASA 2 Emergency Case?: No NPO Status NPO Status: NPO Clears >2 hours, Solids >8 hours Status Status: Not Relevant due to Medical History Anesthesia Plan Resuscitation Status: Full Code Anesthesia Technique: General Anesthesia Airway Planned: Natural Airway Monitors Used: Standard Monitors
[2023-07-05 11:19] VITALS: BMI 17.5
--- NOTE | 2023-07-05 11:43 | BOWEL_PTH ---
PATIENT: Cheli Back LOC: [facility] U#:[id number] AGE/SX: 47/F ROOM: RE07/05/[address]: Preet Barba MD : 1975 BED: DIS: 07/05/2023 SPEC #: [id number] RECD: 07/05/23 12:58 STATUS: JEREMY RE #: [id number] SUBHA: 07/05/23 11:[address]: Preet Barba DEPT: Surgical Specimen RECD BY: Gardenia Clay ENTERED: 07/05/23 13:00 SP TYPE: Bowel OTHR DR: Hieu Barry DO Tissues: 1 - BIOPSY BOWEL 2 - STOMACH BIOPSY 3 - STOMACH BIOPSY 4 - ESOPHAGUS BIOPSY 5 - BIOPSY BOWEL 6 - BIOPSY BOWEL 7 - BIOPSY BOWEL 8 - BIOPSY BOWEL Procedures: GROSS AND MICRO LEVEL 4 Comments: [id number]
[2023-07-05 12:15] VITALS: BP 116/56; PULSE 71; RESP 18; TEMP 36.8; O2SAT 99
[2023-07-05 12:46] VITALS: BP 115/57; PULSE 58; RESP 18; TEMP 36.9; O2SAT 99
--- NOTE | 2023-07-05 13:11 | W.ANESPOSTOP ---
Postoperative Evaluation Date, Time and Location Date Performed: 07/05/23 Time Performed: 13:11 Patient Location: Day Surgery Unit Vital Signs Most Recent Imported Vital Signs: Most Recent Vital Signs Temp Pulse Resp BP Pulse Ox 36.9 C 58 L 18 115/57 L 99 07/05/23 12:46 07/05/23 12:46 07/05/23 12:46 07/05/23 12:46 07/05/23 12:46 Pain Score Most Recent Pain Score: Most Recent Pain Score Pain Level 0 07/05/23 12:46 Assessment Mental Status: Awake (Alert & Oriented to Patient Baseline) Airway and Respiratory Function: Patent airway with normal (patient baseline) respiratory exam Cardiovascular Function: Hemodynamically Stable Hydration Status: Adequately Hydrated Nausea & Vomiting: No Nausea or Vomiting Pain: Pt. Denies Any Pain Peripheral Nerve Block: Patient did not receive a nerve block
== END 2023-07-05 13:20 | disposition home or self-care (01) ==
PROVIDERS: PCP Family Medicine; Visit Provider Surgery
PROC: (CPT 45380; principal; 2023-07-05 10:30)
DX: K52.9 Noninfective gastroenteritis and colitis, unspecified (principal); K44.9 Diaphragmatic hernia without obstruction or gangrene; K62.89 Other specified diseases of anus and rectum; K62.1 Rectal polyp; B96.81 Helicobacter pylori [H. pylori] as the cause of diseases classified elsewhere; K22.89 Other specified disease of esophagus; K29.70 Gastritis, unspecified, without bleeding
CPT/HCPCS: 45380; 43239; 88305; J2001

== ENCOUNTER → 2023-07-08 00:35 | Outpatient (CLI) | payer MEDICAID, SELFPAY ==
--- NOTE | 2023-07-08 07:00 | DI.US_ITS ---
Exam(s) US PELVIS TRANSVAGINAL EXAM: US PELVIS TRANSVAGINAL CLINICAL HISTORY: LT OVARIAN CYST, N83.202. TECHNIQUE: Transabdominal and transvaginal pelvic ultrasound was performed using standard protocol. COMPARISON: US US PELVIS TRANSVAGINAL from 03/05/[address] ABDOMEN PELVIS W from 06/02/2023 FINDINGS: UTERUS: Position: Anteverted. Size: 5.9 long by 3.4 AP by 3.8 transverse cm Endometrium: 0.5 cm. Normal for patient's menstrual status. Myometrium: Unremarkable. Cervix: Unremarkable. OVARIES: The ovaries could not be visualized due to overlying bowel. CUL-DE-SAC: Free fluid: None. Other: None. IMPRESSION: 1. Normal-appearing uterus with endometrial stripe within normal limits. 2. Unfortunately, the ovaries cannot be visualized due to overlying bowel. DATA REPOSITORY:
== END ==
PROVIDERS: PCP Family Medicine; Visit Provider Obstetrics & Gynecology
DX: N83.202 Unspecified ovarian cyst, left side (principal)
CPT/HCPCS: 76830; 76856

== ENCOUNTER 2023-08-11 14:40 | Emergency (ER) | payer MEDICAID, SELFPAY ==
[2023-08-11 14:43] VITALS: BP 156/84; PULSE 90; RESP 16; TEMP 36.3; O2SAT 98
--- NOTE | 2023-08-11 14:45 | RT.EKG_ITS ---
APPROVED REPORT Exam: Resting ECG Reason for Exam: left sided chest pressure Patient Location: E HR:71 bpm ECG Measurements Heart Rate 71 AXIS TX 150 P 49 QRSd 66 QRS 51 QT 408 T 31 QTc 444 Conclusion Sinus rhythm...normal P axis, V-rate 60- 99 Consider left ventricular hypertrophy...(S V1+R V5/V6) >3.25mV
--- NOTE | 2023-08-11 15:00 | DI.RAD_ITS ---
Exam(s) XR PORTABLE CHEST AP EXAM: XR PORTABLE CHEST AP CLINICAL HISTORY: cp/gerd TECHNIQUE: 2D digital imaging was performed. COMPARISON: No exams were available for comparison FINDINGS: Leads overlie the chest LUNGS: Mild right apical scarring, otherwise clear. No pleural abnormality seen. HEART: Normal size. AORTA: Normal diameter. BONES: Unremarkable for age. Soft tissues: Unremarkable. IMPRESSION: No acute findings. DATA REPOSITORY: RADIATION DOSE DELIVERED:
--- NOTE | 2023-08-11 15:07 | ED.GENADUL_ITS ---
Discharge Plan Disposition Patient Disposition: Home Condition: Stable Discharge Details Clinical Impression: Acid reflux Primary Care Provider: Hieu Barry ED Provider: Kash Napier Home Meds and New Rx's Prescriptions: No Action famotidine [Pepcid] 20 mg tablet 20 mg PO DAILY Qty: 30 0RF Rx Instructions: Take 1 tablet by mouth every day if your heartburn symptoms start returning diphenhydramine HCl [Z-Sleep] 25 MG capsule 25 mg PO PRN clonidine HCl 0.1 mg tablet 0.1 mg PO QHS Qty: 60 5RF levothyroxine [Levoxyl] 25 mcg tablet 25 mcg PO DAILY Qty: 60 5RF atorvastatin 20 mg tablet 20 mg PO QHS Qty: 90 3RF ondansetron 4 mg tablet,disintegrating 4 mg PO Q8H PRN (Reason: nausea and vomiting) Qty: 20 6RF Discharge Instructions Instructions: GERD (Gastroesophageal Reflux Disease) (ED) Additional Instructions: Your work-up did not show any acute problems, your symptoms are most likely related to her reflux. You can increase your Pepcid to twice a day, please call your doctor tomorrow for follow up appointment. HPI General Date/Time Provider Initiated Documentation: 08/11/23 14:50 . HPI Narrative: 47 year old female with hx of anxiety, depression, GERD, with dx H pylori and finished her triple therapy 07/31, presents with c/o waking up this morning with significant burning into her chest, consistent with her reflux, but not helped with the pepcid she still takes. She says that the pain seemed to move under her breast, as well. She did not try any other meds at home, stating she can only take the pepcid once a day. She has a little epigastric discomfort, but not bad, and no n/v/d. No fever/chills. Related Data Home Medications Medication Instructions Recorded Confirmed diphenhydramine HCl 25 mg capsule 25 mg PO PRN 11/15/16 07/31/23 (Z-Sleep) clonidine HCl 0.1 mg tablet 0.1 mg PO QHS #60 tabs 08/09/22 07/31/23 levothyroxine 25 mcg tablet 25 mcg PO DAILY #60 tabs 12/24/22 07/31/23 (Levoxyl) atorvastatin 20 mg tablet 20 mg PO QHS #90 tabs 05/06/23 07/31/23 ondansetron 4 mg disintegrating 4 mg PO Q8H PRN nausea and 06/21/23 07/31/23 tablet vomiting #20 tabs famotidine 20 mg tablet (Pepcid) 20 mg PO DAILY #30 tabs 07/31/23 07/31/23 Previous Rx's Medication Instructions Recorded clonidine HCl 0.1 mg tablet 0.1 mg PO QHS #60 tabs 08/09/22 levothyroxine 25 mcg tablet 25 mcg PO DAILY #60 tabs 12/24/22 (Levoxyl) atorvastatin 20 mg tablet 20 mg PO QHS #90 tabs 05/06/23 ondansetron 4 mg disintegrating 4 mg PO Q8H PRN nausea and 06/21/23 tablet vomiting #20 tabs famotidine 20 mg tablet (Pepcid) 20 mg PO DAILY #30 tabs 07/31/23 Allergies Allergy/AdvReac Type Severity Reaction Status Date / Time capsaicin Allergy Severe rash, Verified 07/31/23 08:11 difficulty breathing amoxicillin Allergy Intermediate Swelling/Ed Verified 07/31/23 08:11 stanley banana Allergy itching Verified 07/31/23 08:11 eyes latex Allergy rash Verified 07/31/23 08:11 General Stated Complaint: GenMedical JEANETTE: 2 Review of Systems Narrative: CONST: no fever or chills HEENT: no sore throat SKIN: no rashes PULM: no sob, no cough CARD: +cp ABD: no abd pain EXTR: no swelling NEURO: No focal weakness PFSH All Active Problems (Updated 08/11/23 @ 15:45 by Kash Napier MD) Acid reflux (Chronic) H. pylori infection (Acute) Hyperlipidemia (Acute) Hypothyroidism (acquired) (Acute) 10/02/2019 TSH 5.11. FT4 0.98 11/30/2019. Symptoms improved with 25 MCG Levoxyl dose Medical History (Updated 08/11/23 @ 15:45 by Kash Napier MD) Postmenopausal atrophic vaginitis Family history of uterine cancer pt's mom and several aunts and MGM. Her mom has a genetic mutation. Pt has not been tested. Postmenopausal bleeding Started 01/11 - normal sono and endo bx. Should call if returns Anxiety (10/18/17) Depression (10/18/17) Insomnia hx of sleepwalking. 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 Neoplasm Several aunts with uterine cancer as well Brother Diabetes Social History (Updated 07/17/21 @ 14:08 by Zuri Acuna LPN) Smoking/Tobacco Use Status: Current every day Tobacco Type: e-cigarettes Smokeless tobacco user: other Smoking risk assessment performed?: Yes Alcohol Intake: never Drug use: Daily Substance use type: marijuana and other Details: edibles Household members: significant other Housing: house Communication Needs: None Education Level: college Pets and animals: Yes Pets and animals: cat(s) and dog(s) What is your relationship status?: living with partner Panel score (0-1 are the most socially isolated patients): 1 What type of physical activity do you participate in: walking Frequency: daily Do you feel safe at home: Yes Do you feel safe in your relationship?: Yes Female Reproductive History Menstrual Date of menopause: 11/14/19 History History 4 Para Hx # Term Pregnancies 3 Multiple births Hx # Pregnancies Ectopic pregnancies AB induced Hx Number of Living Children AB spontaneous Exam Narrative Exam Narrative: Const: thin, anxious appearing HEENT: normocephalic, atraumatic; MMM Lungs: CTA, no wheezing or rales Heart: RRR Abd: soft, NT/ND Ext: well perfused Neuro: non-focal Skin: no rashes Course 47 yo female with hx of significant reflux, recent rx for H pylori, with burning consistent with her reflux, but not better with pepcid this am. Work-up without any acute findings. Given that sx's started this am, and low likelihood of ACS, I think one trop adequate. HEART score of 1 for age only. ekg without acute changes, as well. No abnormal LFT's, or lipase, as well. Discussed that she can increase her pepcid dose to twice daily, but will need to talk to her doctor about this and f/u. She has appt in 4 weeks for repeat egd, but asked to touch base with their office in case they want to make any changes to her tx plan or f/u. Vital Signs Vital signs: Vital Signs Temperature 36.3 C L 08/11/23 14:43 Pulse 90 08/11/23 14:43 Respiratory Rate 16 08/11/23 14:43 Blood Pressure 156/84 H 08/11/23 14:43 Pulse Oximetry 98 08/11/23 14:43 Temperature 36.3 C L 08/11/23 14:43 Temperature Source Skin 08/11/23 14:43 Pulse 90 08/11/23 14:43 Respiratory Rate 16 08/11/23 14:43 Blood Pressure 156/84 H 08/11/23 14:43 Blood Pressure Position Sitting 08/11/23 14:43 Pulse Oximetry 98 08/11/23 14:43 Oxygen Delivery Method Room Air 08/11/23 14:43 Oxygen Flow Rate 0 08/11/23 14:43 Pain Level 4 08/11/23 14:43 Lab/Test Results Lab/Test Results: POC- Test(urine) Negative
[2023-08-11 15:20] LABS: Abs Immature Grans 0.02 10^3/uL (0.0-0.06); Absolute Basophil Count 0.07 10^3/uL (0.0-0.2); Absolute Lymphocyte Count 2.64 10^3/uL (1.2-3.4); Absolute Monocyte Count 0.41 10^3/uL (0.1-0.8); Absolute Neutrophil Count 5.21 10^3/uL (1.2-6.7); Basophils % 0.8; Eosinophils % 1.2; HCT 44.6 % (36.0-46.0); HGB 14.6 g/dL (11.2-15.7); Immature Grans % 0.2; Lymphocytes % 31.2; MCH 29.6 pg (27.0-33.0); MCHC 32.7 % (32.0-36.0); MCV 91 fL (80-95); MPV 9.6 fL (8.0-11.0); Monocytes % 4.9; Neutrophils % 61.7; Platelet Count 277 10^3/uL (130-400); RBC 4.93 10^6/uL (3.93-5.22); RDW-SD 43.2 fL; WBC 8.45 10^3/uL (4.4-10.8)
[2023-08-11 15:38] LABS: ALT 29 U/L (14-59); AST 17 U/L (15-37); Albumin 4.5 g/dL (3.4-5.0); Alkaline Phosphatase 77 U/L (46-116); Anion Gap 10.4 mmol/L (3-11); BUN 6 mg/dL (7-18); Bilirubin, Total 0.3 mg/dL (0.2-1.0); CO2 26.6 mmol/L (21.0-32.0); Calcium 10.5 mg/dL (8.5-10.1); Chloride 105 mmol/L (98-107); Estimated GFR 69.06 (mL/min/1.73m2); Glucose 102 mg/dL (74-106); Lipase 54 U/L (16-77); Potassium 3.4 mmol/L (3.5-5.1); Sodium 142 mmol/L (136-145); Total Protein 8.1 g/dL (6.4-8.2); Troponin I < 50 ng/L (<or=60)
--- NOTE | 2023-08-11 15:46 | DI.VRAD_ITS ---
PROCEDURE INFORMATION: Exam: XR Chest Exam date and time: 08/11/2023 3:18 PM Age: 47 years old Clinical indication: Other: Cp/gerd TECHNIQUE: Imaging protocol: Radiologic exam of the chest. Views: 1 view. COMPARISON: CT ABDOMEN PELVIS W 02/06/2023 08:59 FINDINGS: Tubes, catheters and devices: EKG wires overlie the chest. Lungs: Large lung volumes. No focal infiltrate. Pleural spaces: Mild right apical pleural thickening. Heart/Mediastinum: Normal cardiomediastinal silhouette. Bones/joints: Unremarkable for patient's age. IMPRESSION: No acute cardiopulmonary findings. Dictated and Authenticated by: Liz Martin MD. Ordering:ALON Hewitt MD
== END 2023-08-11 16:00 | disposition home or self-care (01) ==
PROVIDERS: Emergency Provider Emergency Medicine; PCP Family Medicine
DX: K21.9 Gastro-esophageal reflux disease without esophagitis (principal); F41.9 Anxiety disorder, unspecified; F32.A Depression, unspecified; F17.290 Nicotine dependence, other tobacco product, uncomplicated
CPT/HCPCS: 36415; 80053; 81025; 83690; 93005; 99283; 71045; 84484; 85025; 93010

== ENCOUNTER 2023-08-13 08:47 | Emergency (ER) | payer MEDICAID, SELFPAY ==
--- NOTE | 2023-08-13 08:48 | W.ED.GENAD ---
Discharge Plan Disposition Patient Disposition: Home Discharge Details Clinical Impression: Acid reflux, Chest pain, unspecified, Acute abdominal pain in right upper quadrant Primary Care Provider: Hieu Barry ED Provider: Enmanuel Lux Home Meds and New Rx's Prescriptions: Continued diphenhydramine HCl [Z-Sleep] 25 MG capsule 25 mg PO PRN clonidine HCl 0.1 mg tablet 0.1 mg PO QHS Qty: 60 5RF levothyroxine [Levoxyl] 25 mcg tablet 25 mcg PO DAILY Qty: 60 5RF atorvastatin 20 mg tablet 20 mg PO QHS Qty: 90 3RF ondansetron 4 mg tablet,disintegrating 4 mg PO Q8H PRN (Reason: nausea and vomiting) Qty: 20 6RF pantoprazole 40 mg tablet,delayed release (DR/EC) 40 mg PO DAILY Qty: 30 0RF Discharge Instructions Instructions: GERD (Gastroesophageal Reflux Disease) (ED) Additional Instructions: You were seen in the emergency department for your chest pain. Your blood work showed no sign of a heart attack. As we discussed, please continue taking your pantoprazole. A HIDA scan has been ordered by the general surgery team which will be completed tomorrow. Afterwards she will follow-up with general surgery. Please also follow-up with your primary care provider to touch base about the possibility of a stress test to ensure that your symptoms are not from your heart. Please return to the emergency department as we discussed if you develop fevers worsening pain or cannot eat or drink. Please proceed directly tomorrow from your nuclear medicine study with radiology to the general surgery clinic. HPI General Date/Time Provider Initiated Documentation: 08/13/23 08:48. HPI Narrative: [facility] This is an overall very well-appearing mildly tachycardic but normothermic and not hypotensive 47-year-old female with chest pain concerning for multiple etiologies. Patient is low risk for ACS and given her symptoms of acid reflux and the duration of time since her chest pain began will obtain a single troponin and if negative along with a nonischemic ECG will be reassured against ACS. No tearing quality to suggest aortic dissection. Bedside [id number] ultrasound reassuring against acute cholecystitis however will obtain LFTs and formal radiology upper quadrant ultrasound. Patient is non an alcoholic however will check lipase given epigastric tenderness to assess for pancreatitis. No pain out of proportion to suggest necrotizing soft tissue infection. No fevers to suggest pneumonia. Not altered to suggest ascending cholangitis. Not recently to suggest splenic arterial aneurysm. No rash to abdomen to suggest zoster. No dysuria no frequency so doubt UTI. Clear breath sounds bilaterally and no trauma so doubt pneumothorax. Not hypotensive nor a dialysis patient so my suspicion is low for tamponade. Patient is mildly tachycardic but is not short of breath so my suspicion is exceedingly low for PE so I did not order a D-dimer. No history of ureterolithiasis so doubt ureterolithiasis. 10 AM CBC lacks anemia thrombocytopenia and leukocytosis. Negative hCG. 10:07 AM Negative troponin. Comprehensive metabolic panel with no CATHERINE. Mild lactic acidosis but no hyperglycemia normal bicarbonate??not consistent with DKA. Normal reassuring LFTs. Reassuring negative lipase. Reassuring formal radiology right upper quadrant ultrasound. No acute cardiopulmonary process. 11:07 AM I spoke with Dr. Langston from general surgery and she requested a HIDA scan which she ordered. I have also attempted treatment with Carafate. She also requested a stool H. pylori test. 11:38 AM Charge nurse Angelique spoke with from general surgery. Unfortunately the isotope was not immediately available. As a result the HIDA scan will be performed in the morning tomorrow and patient will follow-up afterwards in the general surgery clinic tomorrow. I have also asked health sr community manager Aury to have the patient seen by primary care later this week in setting of her chest pain. Given her chest pain it is certainly not unreasonable to obtain outpatient stress test. Given low heart score will not hospitalize patient for stress test. I met with the patient advised her to return to the ED if she had fevers could not eat or drink or had worsening pain. She understood her return indications and we will proceed with empiric trial of expectant outpatient management. Patient was able to tolerate p.o. liquids in the ED. We discussed following a bland low-fat diet at home. Tachycardia resolved in the ED. Discharge heart rate 64. I spoke again to Dr. Langston who reported that Dr. Barba within the office tomorrow. Dr. Langston requested that patient proceed from her HIDA scan directly to general surgery clinic. I passed along this request to the patient. HEART SCORE Chest pain Diagnostic Protocol: [-History/Physical/Gestalt: Slightly Suspicious (0)] [-EKG: Normal and/or unchanged from prior EKG (0)] [- AGE: 45-65 (+1)] [- RISK FACTORS: 3 or more risk factors and/or known CAD (+2)] [-TROPONIN: <= normal limit (0)] - TOTAL SCORE: 3 - Risk Factors: current or recent smoker, HLD, & family hx of CAD - INTERPRETATION: With a total score of 3 or less, risk of major cardiac event within six weeks 1.7%, likely lower with two negative troponins. [I explained to the patient that the risk of subsequent major cardiac event within 1 month is not 0, however risk predicted to be less than 2%. Patient verbalized understanding, accepts this risk and shared and the decision for discharge with PCP follow-up for further evaluation and management. They understand to return to the ED immediately with any worsening symptoms, new symptoms or other concerns.] Chronic conditions affecting the care of the patient: Acid reflux History obtained from an outside historian: N/A External record review: [facility] [Diagnostic interpretations performed by me:] [Per my independent interpretation chest x-ray shows:] No acute cardiopulmonary process [Per my independent interpretation EKG shows:] Narrow complex normal sinus rhythm at a rate of 63. Normal axis. Intervals within normal limits. No ST segment abnormalities. No T wave inversions. No acute injury pattern. Appears similar to prior dated 2 days ago. Medications: Famotidine, ketorolac, Mylanta, viscous lidocaine, Carafate Social determinants of health affecting disposition: N/A Management discussed with: General surgery Treatment/interventions considered: Hospitalization but deferred Response to therapies provided: Minimal change in symptoms despite treatment HPI This is a 47-year-old female with a history of H. pylori infection and GERD arrived to the emergency department via private vehicle in the setting of acid reflux. This morning she woke up at 4:30 AM with epigastric pain and chest pain that radiated into her left flank. Patient reports that she has had near constant acid reflux. She started taking her pantoprazole this morning but had not had relief. She says that she is seeing general surgery and completed her triple therapy for H. pylori. She is due for a right upper quadrant ultrasound. She has been sleeping upright. She endorses a left-sided chest pain that began this morning and radiates into her left flank. She has had no dysuria nor frequency. She has a cough as a result of reflux. She has not felt short of breath. There is family history of coronary artery disease in her father who had a CABG prior to age 65. She has no history of diabetes nor hypertension but does have a history of hyperlipidemia. She is a daily smoker but denies routine alcohol and illicits. Exam General: Well-appearing in no acute distress speaking in complete sentences. Head: Normocephalic, atraumatic. Eye: Extraocular eye movements intact. No conjunctival injection. No scleral icterus. Ear, nose, mouth, throat: Grossly normal inspection. Normal voice, handling secretions normally. Neck: Trachea midline. Cardiovascular: Well-perfused distal extremities. Regular rate and rhythm Respiratory: Nonlabored respiration. Clear lungs bilaterally Gastrointestinal: Nondistended abdomen. Right upper quadrant tenderness. No rebound. No guarding. No rash to abdomen. Musculoskeletal: No edema. Moving all 4 extremities spontaneously. Skin: Normal for age and race, grossly normal temperature and turgor. No acute rash. Neurologic: Alert and appropriate, no apparent acute deficits. Psychiatric: Mood and manner are appropriate. Grooming and personal hygiene are appropriate. Related Data Home Medications Medication Instructions Recorded Confirmed diphenhydramine HCl 25 mg capsule 25 mg PO PRN 11/15/16 08/13/23 (Z-Sleep) clonidine HCl 0.1 mg tablet 0.1 mg PO QHS #60 tabs 08/09/22 08/13/23 levothyroxine 25 mcg tablet 25 mcg PO DAILY #60 tabs 12/24/22 08/13/23 (Levoxyl) atorvastatin 20 mg tablet 20 mg PO QHS #90 tabs 05/06/23 08/13/23 ondansetron 4 mg disintegrating 4 mg PO Q8H PRN nausea and 06/21/23 08/13/23 tablet vomiting #20 tabs pantoprazole 40 mg tablet,delayed 40 mg PO DAILY #30 tabs 08/12/23 08/13/23 release Previous Rx's Medication Instructions Recorded clonidine HCl 0.1 mg tablet 0.1 mg PO QHS #60 tabs 08/09/22 levothyroxine 25 mcg tablet 25 mcg PO DAILY #60 tabs 12/24/22 (Levoxyl) atorvastatin 20 mg tablet 20 mg PO QHS #90 tabs 05/06/23 ondansetron 4 mg disintegrating 4 mg PO Q8H PRN nausea and 06/21/23 tablet vomiting #20 tabs pantoprazole 40 mg tablet,delayed 40 mg PO DAILY #30 tabs 08/12/23 release Allergies Allergy/AdvReac Type Severity Reaction Status Date / Time capsaicin Allergy Severe rash, Verified 08/13/23 09:01 difficulty breathing amoxicillin Allergy Intermediate Swelling/Ed Verified 08/13/23 09:01 stanley banana Allergy itching Verified 08/13/23 09:01 eyes latex Allergy rash Verified 08/13/23 09:01 General JEANETTE: 2 PFSH All Active Problems (Updated 08/13/23 @ 11:55 by Enmanuel Lux MD) Acute abdominal pain in right upper quadrant (Acute) Chest pain, unspecified (Acute) Acid reflux (Chronic) H. pylori infection (Acute) Hyperlipidemia (Acute) Hypothyroidism (acquired) (Acute) 10/02/2019 TSH 5.11. FT4 0.98 11/30/2019. Symptoms improved with 25 MCG Levoxyl dose Medical History (Updated 08/13/23 @ 11:55 by Enmanuel Lux MD) Postmenopausal atrophic vaginitis Family history of uterine cancer pt's mom and several aunts and MGM. Her mom has a genetic mutation. Pt has not been tested. Postmenopausal bleeding Started 01/11 - normal sono and endo bx. Should call if returns Anxiety (10/18/17) Depression (10/18/17) Insomnia hx of sleepwalking. 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 Neoplasm Several aunts with uterine cancer as well Brother Diabetes Social History (Updated 07/17/21 @ 14:08 by Zuri Acuna LPN) Smoking/Tobacco Use Status: Current every day Tobacco Type: e-cigarettes Smokeless tobacco user: other Smoking risk assessment performed?: Yes Alcohol Intake: never Drug use: Daily Substance use type: marijuana and other Details: edibles Household members: significant other Housing: house Communication Needs: None Education Level: college Pets and animals: Yes Pets and animals: cat(s) and dog(s) What is your relationship status?: living with partner Panel score (0-1 are the most socially isolated patients): 1 What type of physical activity do you participate in: walking Frequency: daily Do you feel safe at home: Yes Do you feel safe in your relationship?: Yes Female Reproductive History Menstrual Date of menopause: 11/14/19 History History 4 Para Hx # Term Pregnancies 3 Multiple births Hx # Pregnancies Ectopic pregnancies AB induced Hx Number of Living Children AB spontaneous POCUS Exam (ED) Limited Gallbladder Exam DATE OF EXAM: 08/13/23 TIME OF EXAM: 09:26 PROVIDER THAT PERFORMED THE STUDY: Enmanuel Lux IS THIS A REPEAT EXAM DURING THIS ENCOUNTER: No REASON FOR VISIT: Abdominal pain VISUALIZED STRUCTURES: Gallbladder and Gallbladder wall PERTINENT FINDINGS/IMPRESSION: Other, No pericholecystic fluid, no cholelithiasis, no gallbladder wall thickening but positive sonographic Benites's ; No Cholecystitis, No Cholelithiasis, No gallstones, No Pericholecystic fluid and No thickening of the gallbladder wall INCIDENTAL FINDINGS: No pericholecystic fluid, no cholelithiasis, no gallbladder wall thickening but positive sonographic Benites's Exam complete
[2023-08-13 08:53] VITALS: BP 135/86; PULSE 105; RESP 18; TEMP 36.8; O2SAT 95
[2023-08-13 08:57] VITALS: PULSE 100; RESP 20; TEMP 36.8; O2SAT 100
--- NOTE | 2023-08-13 09:15 | DI.RAD_ITS ---
Exam(s) XR CHEST 2V PA LATERAL EXAM: XR CHEST 2V PA LATERAL CLINICAL HISTORY: Chest pain TECHNIQUE: 2D digital imaging was performed of the chest. Two images were obtained. PA and lateral views were obtained. COMPARISON: CR,XR XR PORTABLE CHEST AP from 08/11/2023 FINDINGS: MEDIASTINUM: Normal. HEART: Normal. PULMONARY VASCULATURE: Normal. LUNGS: Clear. PLEURAL SPACE: No pleural effusion or pneumothorax. BONE:Within normal limits for the patient's age. OTHER FINDINGS:Normal. IMPRESSION: No acute pulmonary findings. DATA REPOSITORY: RADIATION DOSE DELIVERED:
--- NOTE | 2023-08-13 09:15 | DI.US_ITS ---
Exam(s) US ABDOMEN LIMITED EXAM: US ABDOMEN LIMITED CLINICAL HISTORY: Right upper quadrant pain TECHNIQUE: Ultrasound abdomen performed using standard protocol. COMPARISON: CT CT ABDOMEN PELVIS W from 06/02/2023 FINDINGS: PANCREAS: Normal where visualized. LIVER: Normal. Hepatopedal flow in the Portal Vein. The liver measures in 13.2 cm length. GALLBLADDER: No evidence of cholelithiasis. No evidence of wall thickening. No pericholecystic fluid identified. BILIARY SYSTEM: Common bile duct measures < 7 mm. No intrahepatic biliary ductal dilation. LAST'S SIGN: Negative. RIGHT KIDNEY: Kidney is normal in size. No evidence of renal calculi. No evidence of hydronephrosis. No renal mass or cyst identified. ASCITES: None seen. IMPRESSION: Normal sonographic appearance of the upper abdomen. DATA REPOSITORY:
--- NOTE | 2023-08-13 09:15 | RT.EKG_ITS ---
APPROVED REPORT Exam: Resting ECG Reason for Exam: Chest pain Patient Location: E HR:63 bpm ECG Measurements Heart Rate 63 AXIS NC 134 P 63 QRSd 72 QRS 61 QT 400 T 55 QTc 411 Conclusion Sinus rhythm...normal P axis, V-rate 60- 99 Consider left ventricular hypertrophy...(S V1+R V5/V6) >3.25mV Narrow complex normal sinus rhythm at a rate of 63. Normal axis. Intervals within normal limits. N o ST segment abnormalities. No T wave inversions. No acute injury pattern. Appears similar to shelbi watts dated 2 days ago.
[2023-08-13 09:39] LABS: Abs Immature Grans 0.02 10^3/uL (0.0-0.06); Absolute Basophil Count 0.06 10^3/uL (0.0-0.2); Absolute Lymphocyte Count 2.81 10^3/uL (1.2-3.4); Absolute Neutrophil Count 6.03 10^3/uL (1.2-6.7); Basophils % 0.6; Eosinophils % 1.1; HCT 44.2 % (36.0-46.0); HGB 14.3 g/dL (11.2-15.7); Immature Grans % 0.2; Lymphocytes % 29.8; MCH 29.4 pg (27.0-33.0); MCHC 32.4 % (32.0-36.0); MCV 91 fL (80-95); MPV 9.7 fL (8.0-11.0); Monocytes % 4.2; Neutrophils % 64.1; Platelet Count 280 10^3/uL (130-400); RBC 4.87 10^6/uL (3.93-5.22); RDW-SD 43.3 fL; WBC 9.42 10^3/uL (4.4-10.8)
[2023-08-13] MEDS: Mylanta Suspension 30 ML CUP PO (09:48)
[2023-08-13] MEDS: Lidocaine 2% Viscous 15 ML CUP PO (09:48)
[2023-08-13] MEDS: Famotidine 20 MG/2 ML VIAL 40 MG IVP (09:51)
[2023-08-13] MEDS: Ketorolac 15 MG/ML VIAL IVP (09:52)
[2023-08-13] MEDS: Normal Saline 50 ML (09:52)
[2023-08-13] MEDS: Normal Saline 500 ML IV (09:56)
[2023-08-13 09:59] LABS: ALT 27 U/L (14-59); AST 19 U/L (15-37); Albumin 4.6 g/dL (3.4-5.0); Alkaline Phosphatase 85 U/L (46-116); Anion Gap 11.6 mmol/L (3-11); BUN 9 mg/dL (7-18); Bilirubin, Total 0.6 mg/dL (0.2-1.0); CO2 27.4 mmol/L (21.0-32.0); CREATININE 1.1 mg/dL (0.55-1.02); Calcium 10.7 mg/dL (8.5-10.1); Chloride 103 mmol/L (98-107); Glucose 101 mg/dL (74-106); Lipase 65 U/L (16-77); Potassium 3.6 mmol/L (3.5-5.1); Sodium 142 mmol/L (136-145); Total Protein 8.2 g/dL (6.4-8.2); Troponin I < 50 ng/L (<or=60)
[2023-08-13 10:00] LABS: HCG Qual (Serum) Negative
[2023-08-13] MEDS: Sucralfate 1 GM TAB PO (11:16)
[2023-08-13 11:49] VITALS: PULSE 64; O2SAT 95
--- NOTE | 2023-08-13 17:02 | NUR.NOTE ---
Faxed referral to [facility] for a follow up and stress test, later this week.
== END 2023-08-13 12:08 | disposition home or self-care (01) ==
PROVIDERS: Emergency Provider Emergency Medicine; PCP Family Medicine
DX: K21.9 Gastro-esophageal reflux disease without esophagitis (principal); R07.9 Chest pain, unspecified; R10.11 Right upper quadrant pain
CPT/HCPCS: 36415; 76705; 80053; 83690; 93005; 96361; 96374; 96375; 99284; 71046; 84484; 84703; 85025; 93010; J1885

== ENCOUNTER → 2023-08-14 01:25 | Outpatient (CLI) | payer MEDICAID, SELFPAY ==
--- NOTE | 2023-08-14 06:15 | DI.NM_ITS ---
Exam(s) NM HEPATOBILIARY CCK GRP EXAM: NM HEPATOBILIARY CCK GRP CLINICAL HISTORY: ? gallbladder,acute abd pain in ruq, r10.11. TECHNIQUE: Injected dose: 5 mCi Tc-99 mebrofenin Initial dynamic images: 60 minutes Post-Gallbladder fillin.02 mcg/kg CCK intravenously over a 30min infusion. Additional images: 30 minute dynamic during CCK administration. COMPARISON: US US ABDOMEN LIMITED from 08/13/2023 FINDINGS: Normal hepatic transit time. Prompt excretion into the small bowel. Prompt excretion into the gallbladder. Gallbladder ejection fraction: 89 percent IMPRESSION: 1. Normal gallbladder ejection fraction [facility] guidelines: Gallbladder visualization should be present by 3 hours. Delayed [id number] esquivel sit beyond 60 min raises the suspicion for partial common bile duct (CBD) obstruction. Gallbladder ejection fraction <35% has a good correlation with acalculous disease (i.e., chronic acal culous cholecystitis, cystic duct syndrome, sphincter of Oddi disease).
[2023-08-14] MEDS: Sincalide 5 MCG VIAL 0.8 MCG IJ (11:29)
[2023-08-14] MEDS: Water,Injection,Sterile 10 ML VIAL IJ (11:31)
== END ==
PROVIDERS: PCP Family Medicine; Visit Provider Surgery
DX: R10.11 Right upper quadrant pain (principal)
CPT/HCPCS: 78227; J2805

== ENCOUNTER 2023-09-12 05:49 | Day surgery (SDC) | payer MEDICAID, SELFPAY ==
--- NOTE | 2023-09-11 18:49 | W.PREOPHP ---
Assessment and Plan Assessment and plan (1) H. pylori infection: Status: Acute Assessment and plan: We reviewed the plan for repeat EGD today, as well as the risks and the benefits of the procedure. I think she has a good understanding of this. We will proceed as planned. History of Present Illness History of Present Illness Chief Complaint: H pylori Narrative: Maribell is 47 years old. She underwent EGD a little over a month ago as diagnosis for nonspecific abdominal pain. She was found to be Helicobacter pylori positive. She was started on triple therapy. She is back for repeat EGD confirmation of H. pylori eradication. Since her last visit, she has been feeling much better. She did resume Protonix, and, probably more importantly, she was able to successfully quit smoking. PFSH All Active Problems Acute abdominal pain in right upper quadrant (Acute) Chest pain, unspecified (Acute) H. pylori infection (Acute) Hyperlipidemia (Acute) Hypothyroidism (acquired) (Acute) 10/02/2019 TSH 5.11. FT4 0.98 11/30/2019. Symptoms improved with 25 MCG Levoxyl dose Medical History Hand fracture, right surgery with pin placement, pin since removed Postmenopausal atrophic vaginitis Family history of uterine cancer pt's mom and several aunts and MGM. Her mom has a genetic mutation. Pt has not been tested. Postmenopausal bleeding Started 01/11 - normal sono and endo bx. Should call if returns Anxiety (10/18/17) Depression (10/18/17) Insomnia hx of sleepwalking. Surgical History History of esophagogastroduodenoscopy (~06/2023) with biopsies History of colonoscopy (~06/2023) with biopsies cryotherapy (~1994) due to abnormal pap so had cryotherapy RH Ligation of fallopian tube Family History Mother Diabetes Essential hypertension Heart disease Hyperlipidemia Neoplasm Uterine cancer 2017, carrier of [place] Syndrome Had hysterectomy, no chemo/radiation Asthma Father , Lymphoma Diabetes Anxiety Heart disease Neoplasm Stroke Grandfather Diabetes Grandmother Diabetes Stroke Maternal Aunt , Breast CA. Neoplasm Several aunts with uterine cancer as well Brother Diabetes Social History Smoking/Tobacco Use Status: Former Tobacco Use Quit Date: 08/22/23 Smokeless tobacco user: other Smoking risk assessment performed?: Yes Alcohol Intake: never Drug use: Never Substance use type: does not use and other Details: edibles Details: Stopped using due to causing acid reflux Household members: significant other Housing: house Communication Needs: None Education Level: college Pets and animals: Yes Pets and animals: cat(s) and dog(s) What is your relationship status?: living with partner Panel score (0-1 are the most socially isolated patients): 1 What type of physical activity do you participate in: walking Frequency: daily Do you feel safe at home: Yes Do you feel safe in your relationship?: Yes Additional Social history: unable to assess privately Female Reproductive History Menstrual Date of menopause: 11/14/19 History History 4 Para Hx # Term Pregnancies 3 Multiple births Hx # Pregnancies Ectopic pregnancies AB induced Hx Number of Living Children AB spontaneous Meds Allergies and Home Medications Allergies Allergy/AdvReac Type Severity Reaction Status Date / Time capsaicin Allergy Severe rash, Verified 09/12/23 06:24 difficulty breathing amoxicillin Allergy Intermediate Swelling/Ed Verified 09/12/23 06:24 stanley banana Allergy itching Verified 09/12/23 06:24 eyes latex Allergy rash Verified 09/12/23 06:24 Home Medications Medication Instructions Recorded Confirmed Type diphenhydramine HCl 25 mg capsule 25 mg PO PRN 11/15/16 09/12/23 History (Z-Sleep) levothyroxine 25 mcg tablet 25 mcg PO DAILY #60 tabs 12/24/22 09/12/23 Rx (Levoxyl) atorvastatin 20 mg tablet 20 mg PO QHS #90 tabs 05/06/23 09/12/23 Rx pantoprazole 40 mg tablet,delayed 40 mg PO DAILY #30 tabs 08/12/23 09/12/23 Rx release clonidine HCl 0.1 mg tablet 0.1 mg PO QHS #60 tabs 08/23/23 09/12/23 Rx Exam Const General: cooperative, healthy appearing and not in acute distress Neck Neck: normal visual inspection, no lymphadenopathy and supple Resp Effort & Inspection: normal respiratory effort Auscultation: clear to auscultation bilaterally Cardio Jugular venous pressure: no JVD Rate: regular rate Rhythm: regular rhythm Heart Sounds: S1 normal and S2 normal Neuro General: patient alert, patient awake and patient oriented x3 Psych Appearance: grossly normal
--- NOTE | 2023-09-11 18:50 | W.PM.DSUDISC ---
Date of service: 09/12/23 Time of Service: 07:38 Discharge Plan Disposition Patient Disposition: Home Condition: Good Discharge Details Reason For Visit: EGD Attending Provider: Preet Barba Primary Care Provider: Hieu Barry Home Meds and New Rx's Prescriptions: New pantoprazole 40 mg tablet,delayed release (DR/EC) 40 mg PO DAILY Qty: 90 3RF Continued diphenhydramine HCl [Z-Sleep] 25 MG capsule 25 mg PO PRN levothyroxine [Levoxyl] 25 mcg tablet 25 mcg PO DAILY Qty: 60 5RF atorvastatin 20 mg tablet 20 mg PO QHS Qty: 90 3RF pantoprazole 40 mg tablet,delayed release (DR/EC) 40 mg PO DAILY Qty: 30 0RF clonidine HCl 0.1 mg tablet 0.1 mg PO QHS Qty: 60 5RF Discharge Instructions Additional Instructions: Maribell, your EGD went great. Your stomach looks excellent. I do not see any active signs of inflammation. Like we talked about, I perform multiple biopsies, and we will follow-up to see if there is any evidence of H. pylori in the nose. Assuming they are negative, and you continue to feel okay, that I do not think we need to make any other changes at this point. If the biopsies come back positive, we can talk about alternative strategies, or just reassess your symptoms and see how you are doing. I will be in touch when I have the biopsy results. 1. If tolerated, consume a soft, low fiber diet for 1-2 days. [address] not drive, drink alcohol, operate machinery, make critical decisions, or do activities that require coordination or balance for 24 hours. 3. You may experience a sore throat for 24 to 48 hours. You may use throat lozenges or gargle with warm salt water to relieve the discomfort. 4. Because air was put into your stomach during the procedure, you may experience some belching. 5. Go directly to the emergency room if you notice any of the following: Develop chills (warm to touch), or if you have a thermometer and your temperature is above 101 Difficulty breathing or difficultly swallowing Persistent vomiting Severe abdominal pain, other than gas cramps Severe chest pain Black, tarry stools Any bleeding ? exceeding one tablespoon 6. Call your physician if the site where your intravenous was started becomes red, swollen, painful, and warm to touch. 7. Your physician has reviewed your pre-procedure medications. Please continue to take those medications as previously ordered. You will be given specific information/education regarding any changes to your medications before leaving. Activity:: Activity as Tolerated Diet:: As Tolerated Discharge Orders Discharge Orders: Discharge Order (Routine); Ordered 09/11/23 Ordered By: Preet Barba DS: Diagnosis Discharge Diagnosis (1) H. pylori infection: Status: Acute Asessment and Plan: No evidence of any active gastritis; follow-up on biopsy results
--- NOTE | 2023-09-11 18:52 | W.PM.ENDDOP ---
Date of service: 09/12/23 Time of Service: 07:40 Endoscopy Report DATE OF PROCEDURE: 09/12/23 PRE-OP DIAGNOSIS: H. pylori POST-OP DIAGNOSIS: same PROCEDURE: EGD with biopsies SURGEON: Preet Barba ANESTHESIA TYPE: General:No Airway ESTIMATED BLOOD LOSS: 10 PATHOLOGY: other (Biopsies of duodenum, gastric antrum, gastric body) COMPLICATIONS: None DISPOSITION: same day INDICATIONS: Maribell is a 47-year-old woman with midepigastric abdominal pain. She underwent EGD that demonstrated H. pylori. She was treated with triple therapy, and is here for repeat EGD and confirmation of H. pylori eradication. PROCEDURE START TIME: 07:28 PROCEDURE END TIME: :34 FINDINGS: Slightly patulous pylorus, otherwise normal-appearing duodenum, stomach, esophagus PROCEDURE DESCRIPTION: After the initiation of monitored anesthetic care, and with the assistance of a bite block, I advanced a standard gastroscope through the mouth past the hypopharynx and into the esophagus.? Under the direct vision of the scope, I advanced down the esophagus into the stomach.? Once I entered the stomach, I performed a brief inspection, followed by retroflexion towards the gastric cardia.? This appeared normal.? There were no signs of hiatal hernia after that, I gently advanced the scope around the incisura angularis and examined the pylorus.? The pylorus was slightly opened, but there was no obvious bile reflux.? Next, I advanced the scope through the pylorus into the duodenum.? The mucosa was pink and healthy appearing.? There were no abnormalities.? I was able to visualize bile draining into the duodenum through the ampulla Vater. I did perform some cold forceps biopsies of the duodenum there was minimal bleeding. Next, I began retracting the endoscope.? I brought the camera back into the stomach and examined its entirety. Narrowband imaging was used to complement standard lighting. It all appeared normal. I did perform some cold forceps biopsies of gastric antrum and gastric body to assess for Helicobacter pylori again. I then gently desufflated some of the stomach, and withdrew the endoscope into the distal esophagus. The Z-line and GE junction were totally normal at 36 cm. ?Finally, I withdrew the scope along the length of the esophagus taking great care to examine the entirety of the mucosa.? I did not appreciate any abnormalities.
[2023-09-12 06:18] VITALS: BP 108/61; PULSE 61; RESP 18; TEMP 36.6; O2SAT 98
[2023-09-12] MEDS: Lactated Ringers 1,000 ML 80 ML IV (06:45)
--- NOTE | 2023-09-12 06:58 | ANES.PREOP_ITS ---
General Info Date of Service Date Performed: 09/12/23 Height: 5 ft 4 in Weight: 44.906 kg Body Mass Index (BMI): 16.9 Surgical Procedure: Operation Date: 09/12/23 07:35 Proposed Procedure Side Surgeon p Gastroscopy w/Biopsy Preet Barba MD Actual Procedure Side Surgeon p Gastroscopy w/Biopsy Not Applicable Preet Barba MD Pre-Op Diagnosis Post-Op Diagnosis EGD Meds Allergies and Home Medications Allergies Allergy/AdvReac Type Severity Reaction Status Date / Time capsaicin Allergy Severe rash, Verified 09/12/23 06:24 difficulty breathing amoxicillin Allergy Intermediate Swelling/Ed Verified 09/12/23 06:24 stanley banana Allergy itching Verified 09/12/23 06:24 eyes latex Allergy rash Verified 09/12/23 06:24 Home Medication Medication Instructions Recorded diphenhydramine HCl 25 mg capsule 25 mg PO PRN 11/15/16 (Z-Sleep) levothyroxine 25 mcg tablet 25 mcg PO DAILY #60 tabs 12/24/22 (Levoxyl) atorvastatin 20 mg tablet 20 mg PO QHS #90 tabs 05/06/23 pantoprazole 40 mg tablet,delayed 40 mg PO DAILY #30 tabs 08/12/23 release clonidine HCl 0.1 mg tablet 0.1 mg PO QHS #60 tabs 08/23/23 Current Visit Medications: Current Medications Generic Name Dose Route Start Last Admin Trade Name Freq PRN Reason Stop Dose Admin Hyoscyamine Sulfate 0.125 mg 09/11/23 18:53 Hyoscyamine 0.125 Mg Sl/Oral/Chew SL 10/11/23 18:52 DIRECTED PRN Ringer's Solution 1,000 mls @ 80 mls/hr 09/12/23 06:00 09/12/23 06:45 IV 09/12/23 23:59 80 mls/hr INFUSION PORTER Administration IV Miscellaneous Supplies 1 each 09/12/23 06:00 Iv Access IV 09/12/23 23:59 DIRECTED PORTER Ondansetron HCl 4 mg 09/11/23 18:53 Ondansetron 4 Mg/2 Ml Vial IVP 10/11/23 18:52 Q4H PRN PRN Nausea / Vomiting Sodium Chloride 0 ml 09/12/23 06:00 Normal Saline Flush 10 Ml Syr IV 09/12/23 23:59 PRN PRN Sodium Chloride 0 ml 09/12/23 06:00 Normal Saline 10 Ml Vial IJ 09/12/23 23:59 DIRECTED PRN Sterile Water 0 ml 09/12/23 06:00 Water,Injection,Sterile 10 Ml Vial IJ 09/12/23 23:59 DIRECTED PRN PFSH Active Problems Active Problems: Problem Status Onset Code Acute abdominal pain in right upper quadrant R10.11 Chest pain, unspecified R07.9 H. pylori infection A04.8 Hyperlipidemia E78.5 Hypothyroidism (acquired) E03.9 Medical History Medical History Hand fracture, right surgery with pin placement, pin since removed Postmenopausal atrophic vaginitis Family history of uterine cancer pt's mom and several aunts and MGM. Her mom has a genetic mutation. Pt has not been tested. Postmenopausal bleeding Started 01/11 - normal sono and endo bx. Should call if returns Anxiety (10/18/17) Depression (10/18/17) Insomnia hx of sleepwalking. Medical History Comments:: Pt. states her rhiannonacee will call her to check on her during the day, and her stepson will stop by to physically check on her. Surgical History Surgical History History of esophagogastroduodenoscopy (~06/2023) with biopsies History of colonoscopy (~06/2023) with biopsies cryotherapy (~1994) due to abnormal pap so had cryotherapy RH Ligation of fallopian tube Tobacco Smoking/Tobacco Use Status: Former Tobacco Use Smokeless tobacco user: other Alcohol Alcohol Intake: never Substance Use Substance use: Never Substance use type: does not use and other Details: edibles Details: Stopped using due to causing acid reflux Prental History History 4 Para Hx # Term Pregnancies 3 Multiple births Hx # Pregnancies Ectopic pregnancies AB induced Hx Number of Living Children AB spontaneous Vital Signs and Lab Results Vital Signs Most Recent Vital Signs in EMR: Most Recent Vital Signs Temp Pulse Resp BP Pulse Ox 36.6 C 61 18 108/61 98 09/12/23 06:18 09/12/23 06:18 09/12/23 06:18 09/12/23 06:18 09/12/23 06:18 Point of Care Results Point of Care Results: POC- Test(urine) Negative 09/12/23 06:23 Lab Results Blood Type / Crossmatch: No Data to Display Complete Blood Count: White Blood Count 9.42 10^3/uL (4.4-10.8) 08/13/23 09:30 Red Blood Count 4.87 10^6/uL (3.93-5.22) 08/13/23 09:30 Hemoglobin 14.3 g/dL (11.2-15.7) 08/13/23 09:30 Hematocrit 44.2 % (36.0-46.0) 08/13/23 09:30 Platelet Count 280 10^3/uL (130-400) 08/13/23 09:30 Complete Metabolic Panel: Sodium 142 mmol/L (136-145) 08/13/23 09:30 Potassium 3.6 mmol/L (3.5-5.1) 08/13/23 09:30 Chloride 103 mmol/L (98-107) 08/13/23 09:30 Carbon Dioxide 27.4 mmol/L (21.0-32.0) 08/13/23 09:30 BUN 9 mg/dL (7-18) 08/13/23 09:30 Creatinine 1.1 mg/dL (0.55-1.02) H 08/13/23 09:30 Est GFR (CKD-EPI 2020) 61.60 (mL/min/1.73m2) 08/13/23 09:30 Calcium 10.7 mg/dL (8.5-10.1) H 08/13/23 09:30 Albumin 4.6 g/dL (3.4-5.0) 08/13/23 09:30 Glucose 101 mg/dL (74-106) 08/13/23 09:30 Liver Function Panel: Alanine Aminotransferase (ALT/SGPT) 27 U/L (14-59) 08/13/23 09: 30 Aspartate Amino Transf (AST/SGOT) 19 U/L (15-37) 08/13/23 09:30 Coagulation Panel: No Data to Display Cardiac Panel: Troponin I < 50 ng/L (<or=60) 08/13/23 Arterial Blood Gas: No Data to Display Venous Blood Gas: No Data to Display Pancreas Panel: Lipase 65 U/L (16-77) 08/13/23 09:30 Thyroid Panel: No Data to Display Infectious Disease: No Data to Display Blood Cultures: No Data to Display Toxicology Panel: No Data to Display Panel: Serum HCG, Qualitative Negative 08/13/23 09:30 Anesthesia Assessment and Plan Anesthesia History Personal History: No History of Anesthesia Complications Family History: No Family History of Anesthesia Complications Exercise Tolerance Exercise Tolerance: Metabolic Equivalents>4 Pertinent Negatives Pertinent Negatives: No Major Cardiovascular Symptoms or Complaints, No Major Pulmonary Symptoms or Complaints and No History of CVA/TIA Cardiac & Pulmonary Exam Cardiac Exam: Normal S1/S2 Heart Sounds Pulmonary Exam: Clear Bilateral Breath Sounds Implantable Cardiac Device Does patient have a Pacemaker or an ICD?: No Airway Exam Known Difficult Airway: No Mallampati Class: 1 Mouth Opening: Normal (> 3cm) Thyromental Distance: Greater than 3 cm Neck Range of Motion: Full ROM Neck Circumference: Normal Teeth Condition: Normal Dentition ASA Classification ASA Score: ASA 2 Emergency Case?: No NPO Status NPO Status: NPO Clears >2 hours, Solids >8 hours Status Status: Negative HCG Anesthesia Plan Resuscitation Status: Full Code Anesthesia Technique: General Anesthesia Airway Planned: Natural Airway Monitors Used: Standard Monitors
[2023-09-12 07:09] VITALS: BMI 16.9
--- NOTE | 2023-09-12 07:31 | STOM_PTH ---
PATIENT: Cheli Back LOC: [facility] U#:[id number] AGE/SX: 47/F ROOM: RE09/12/[address]: Preet Barba MD : 1975 BED: DIS: 09/12/2023 SPEC #: [id number] RECD: 09/12/23 12:34 STATUS: JEREMY REQ #: [id number] SUBHA: 09/12/23 07:[address]: Preet Barba DEPT: Surgical Specimen RECD BY: Gardenia Clay ENTERED: 09/12/23 12:35 SP TYPE: STOMACH OTHR DR: Hieu Barry DO Tissues: 1 - BIOPSY BOWEL 2 - STOMACH BIOPSY 3 - STOMACH BIOPSY Procedures: GROSS AND MICRO LEVEL 4 IMMUNOPEROXIDASE STAIN Comments: [id number]
[2023-09-12 07:46] VITALS: BP 101/66; PULSE 68; RESP 16; TEMP 36.2; O2SAT 98
--- NOTE | 2023-09-12 08:22 | W.ANESPOSTOP ---
Postoperative Evaluation Date, Time and Location Date Performed: 09/12/23 Time Performed: 08:23 Patient Location: Day Surgery Unit Vital Signs Most Recent Imported Vital Signs: Most Recent Vital Signs Temp Pulse Resp BP Pulse Ox 36.2 C L 68 16 101/66 98 09/12/23 07:46 09/12/23 07:46 09/12/23 07:46 09/12/23 07:46 09/12/23 07:46 Pain Score Most Recent Pain Score: Most Recent Pain Score Pain Level 0 09/12/23 07:46 Assessment Mental Status: Awake (Alert & Oriented to Patient Baseline) Airway and Respiratory Function: Patent airway with normal (patient baseline) respiratory exam Cardiovascular Function: Hemodynamically Stable Hydration Status: Adequately Hydrated Nausea & Vomiting: No Nausea or Vomiting Pain: Pt. Denies Any Pain Peripheral Nerve Block: Patient did not receive a nerve block
[2023-09-12 08:23] VITALS: BP 111/70; PULSE 66; RESP 16; TEMP 36.4; O2SAT 99
== END 2023-09-12 08:26 | disposition home or self-care (01) ==
LOC: SUR 05:49
PROVIDERS: PCP Family Medicine; Visit Provider Surgery
PROC: 0DJ68ZZ Inspection of Stomach, Via Natural or Artificial Opening Endoscopic (ICD-10-PCS; CPT 43235; principal; 2023-09-12 07:30)
DX: A04.8 Other specified bacterial intestinal infections (principal); K21.9 Gastro-esophageal reflux disease without esophagitis
CPT/HCPCS: 43239; 81025; 88305; 88361

== ENCOUNTER → 2024-03-25 00:37 | Outpatient (CLI) | payer MEDICAID, SELFPAY ==
--- NOTE | 2024-03-25 07:30 | DI.US_ITS ---
APPROVED REPORT EXAM: Comprehensive 2D, Doppler, and color-flow Echocardiogram Patient Location: Out-Patient Prompt Care Rn: Gwen Glynn RDCS (AE) Indications: New murmur, dyspnea on exertion Other Information Study Quality: Good Conclusion Normal left ventricular wall thickness and chamber size. Ejection fraction is 60 to 65%. Wall motio n is normal Normal right ventricular size and function Both atria are normal in size There are no structural valvular abnormalities Mild mitral regurgitation Normal estimated right ventricular systolic pressure 23 mmHg Wall motion Left Ventricle The left ventricle is normal size. The left ventricular systolic function is normal. The left ventric ular ejection fraction is within the normal range. There is normal left ventricular wall thickness. T here is normal LV segmental wall motion. There is no ventricular septal defect visualized. LVEF is 60 -65%. Right Ventricle The right ventricle is normal size. The right ventricular systolic function is normal. Atria The left atrium size is normal. The right atrium size is normal. The interatrial septum is intact wit h no evidence for an atrial septal defect. Aortic Valve The aortic valve is normal in structure. Aortic valve is trileaflet. There is no aortic valvular sten osis. No aortic regurgitation is present. Mitral Valve The mitral valve is normal in structure. No evidence of mitral valve stenosis. Mild mitral regurgita tion. Tricuspid Valve The tricuspid valve is normal in structure. There is no tricuspid valve stenosis. Trace tricuspid reg urgitation. The RVSP is _22.8 mmHg. Pulmonic Valve The pulmonary valve is normal in structure. There is no pulmonic valvular stenosis. Trace pulmonic re gurgitation. Great Vessels The aortic root is normal in size. The ascending aorta is normal in size. Aortic arch is normal in ca liber. IVC is normal in size and collapses >50% with inspiration. Pericardium There is no pericardial effusion. 2D Dimensions IVSD d PLAX 0.85 cm F: 0.6-1.0 Ao Root d 2.78 cm F: 2.7 - 3.3 LVPW d PLAX 0.78 cm F: 0.6 - 1.0 Ao Asc Diam d 2.78 cm F: 2.3 - 3.1 LVID d PLAX 3.96 cm F: 3.8 - 5.2 LVDs 2.68 cm F: 2.2 - 3.5 LV EF Teichholz 61.0 % FS 32.21 % LV EDV (Teich) 68.2 mL LV ESV (Teich) 26.6 mL M-Mode TAPSE 2.55 cm (M/F) >1.7 Auto EF LV EDV A4C 88.5 mL LV EDV A2C 105.6 mL LV EDV BP 97.8 mL LV ESV A4C 33.7 mL LV ESV A2C 37.3 mL LV ESV BP 35.3 mL LVEF(%) A4C 61.9 % LVEF(%) A2C 64.7 % LVEF(%) BP 63.9 % LV SV A4C 54.8 ml LV SV A2C 68.2 ml LV SV BP 62.5 ml LV CO A4C 3.5 L/min LV CO A2C 3.9 L/min LV CO BP 3.7 L/min HR A4C 64.06 BPM HR A2C 56.86 BPM LV EDV Index (BP) LA Volume LA Length A4C 3.9 cm LA Length A2C 4.3 cm LA Area A4C s 12.45 cm2 LA Area A2C s 13.66 cm2 LA Vol A4C A-L 33.43 mL LA Vol A2C A-L 36.72 mL LA Vol Biplane A-L 36.7 mL LA Vol/BSA A4C A-L LA Vol/BSA A2C A-L LA Vol/BSA BP A-L 23.1 mL/m2 LA Vol A4C MOD 29.2 mL LA Vol A2C MOD 35.0 mL LA Vol BP MOD 33.3 mL RA Volume RA Area A4C 8.7 cm2 RA ESV A4C (A-L) 18.2mL RA Vol/BSA A4C A-L RA Length A4C 3.5 cm RA ESV A4C (MOD) 17.5mL LV Diastology MV E' medial 0.077 (>0.07 m/s) MV E Vmax 1.07 (0.4-1.3 m/s) MV E/E' MED 13.99 (<14) MV A Vmax 0.90 (0.4-1.3 m/s) MV E' lateral 0.113 (>0.1 m/s) E/A Ratio 1.2 MV E/E' LAT 9.47 (<14) MV E' Average 0.095 m/s MV E/E'(average) 11.30 Aortic Valve AoV Vmax 1.50 m/s LVOT Vmax 1.15 m/s AoV Peak Grad 9.0 mmHg LVOT Peak Grad 5.3 mmHg AoV Area (Vmax) 2.13 cm2 LVOT VTI 0.295 m AoV VTI 0.396 m LVOT Mean Grad 3.1 mmHg AoV Mean Zechariah. 1.09 m/s LVOT SV 81.96 mL AoV Mean Grad 5.4 mmHg LVOT Diam s 1.85 cm AoV Area (VTI) 2.07 cm2 Velocity Ratio 0.77 Mitral Valve MV DT 240 (160-240 msec) MV Vmax TIPS 1.01 m/s MV Mean Grad 2.0 (<2mmHg) MV VTI 0.432 m Pulmonary Valve PV Vmax 0.93 (0.5-1.5 m/s) RVOT Vmax 0.58 m/s PV Peak Grad 3.4 mmHg RVOT Peak Gr. 1.4 mmHg PV Mean Zechariah 0.66 m/s RVOT VTI 0.141 m PV Mean Grad 1.9 mmHg RVOT Mean Gr. 0.8 mmHg Tricuspid Valve RA Pressure 3.00 mmHg TR Vmax 2.22 m/s TV S' 0.13 m/s TR Peak Grad 19.7 mmHg RVSP (TR) 22.8 mmHg
== END ==
PROVIDERS: PCP Family Medicine; Visit Provider Family Medicine
DX: R06.09 Other forms of dyspnea (principal); R01.1 Cardiac murmur, unspecified
CPT/HCPCS: 93306

== ENCOUNTER 2024-12-12 08:08 | Emergency (ER) | payer MEDICAID, SELFPAY ==
[2024-12-12 08:09] VITALS: BP 145/78; PULSE 93; RESP 15; TEMP 37.2; O2SAT 96
[2024-12-12 08:14] VITALS: BP 145/78; PULSE 93; RESP 15; O2SAT 96
--- NOTE | 2024-12-12 08:23 | ED.GENADUL_ITS ---
Discharge Plan Disposition Patient Disposition: Home Discharge Details Clinical Impression: URI (upper respiratory infection) Primary Care Provider: Hieu Barry ED Provider: Herve Owen Home Meds and New Rx's Prescriptions: Continued naproxen 500 mg tablet 500 mg PO BID PRN (Reason: pain) Qty: 60 0RF diphenhydramine HCl [Z-Sleep] 25 MG capsule 25 mg PO PRN atorvastatin 20 mg tablet 20 mg PO QHS Qty: 90 3RF levothyroxine [Levoxyl] 25 mcg tablet 25 mcg PO DAILY Qty: 60 5RF clonidine HCl 0.1 mg tablet 0.1 mg PO QHS Qty: 60 2RF Discharge Instructions Instructions: Upper Respiratory Infection ED Additional Instructions: You may continue to use appropriate lnny-dif-vqjpoer medications such as Motrin, and common cough and cold meds just take as directed on packaging. Please stay well-hydrated and get plenty of rest. If you have any new or significant worsening of your condition feel free to return to the emergency department for reassessment and further treatment otherwise follow-up with your primary care provider if not improving over the next week. Stand Alone Forms: Work Release Referrals: Hieu Barry DO [Primary Care Provider] - (As needed for reassessment) Discharge Data Discharge Date/Time-TO BE ENTERED AT DEPARTURE: 12/12/24 08:57 HPI General Mode of arrival: ambulatory . Date/Time Provider Initiated Documentation: 12/12/24 08:11 . Limitations to Documentation: no limitations . Information obtained by: patient and RN notes reviewed . History of Present Illness 48 year old F presents to the emergency department with the chief complaint of Sore throat, cold symptoms, described as moderate, Quality is described as aching and sharp, and is localized to the neck. Patient reports no radiation. Patient started experiencing this day(s) (4) and it has been constant. No relieving factors improve symptom(s), No exacerbating factors reported . Patient notes fever/chills and malaise. Patient did receive the following treatments prior to arrival, none Related Data Home Medications ?Medication ?Instructions ?Recorded ?Confirmed diphenhydramine HCl 25 mg capsule 25 mg PO PRN 11/15/16 12/12/24 (Z-Sleep) naproxen 500 mg tablet 500 mg PO BID PRN pain #60 tabs 03/02/24 12/12/24 atorvastatin 20 mg tablet 20 mg PO QHS #90 tabs 05/05/24 12/12/24 levothyroxine 25 mcg tablet 25 mcg PO DAILY #60 tabs 07/21/24 12/12/24 (Levoxyl) clonidine HCl 0.1 mg tablet 0.1 mg PO QHS #60 tabs 12/08/24 12/12/24 Previous Rx's ?Medication ?Instructions ?Recorded naproxen 500 mg tablet 500 mg PO BID PRN pain #60 tabs 03/02/24 atorvastatin 20 mg tablet 20 mg PO QHS #90 tabs 05/05/24 levothyroxine 25 mcg tablet 25 mcg PO DAILY #60 tabs 07/21/24 (Levoxyl) clonidine HCl 0.1 mg tablet 0.1 mg PO QHS #60 tabs 12/08/24 Allergies Allergy/AdvReac Type Severity Reaction Status Date / Time capsaicin Allergy Severe rash, Verified 12/12/24 08:15 difficulty breathing amoxicillin Allergy Intermediate Swelling/Ed Verified 12/12/24 08:15 stanley pantoprazole Allergy Intermediate swelling Verified 12/12/24 08:15 of hands banana Allergy itching Verified 12/12/24 08:15 eyes latex Allergy rash Verified 12/12/24 08:15 General Stated Complaint: Sorethroat JEANETTE: 4 Review of Systems Constitutional Constitutional: Reports chills, Reports fever(s), Denies headache(s) and Reports malaise ENT Ears, Nose, Mouth, and Throat: Denies change in voice, Denies dysphagia, Reports otalgia, Denies headache(s), Denies hoarseness, Denies lip swelling, Denies mouth lesions, Reports nasal congestion, Reports odynophagia, Reports sore throat, Denies throat swelling and Denies tongue swelling Cardiovascular Cardiovascular: Denies chest pain Respiratory Respiratory: Denies chest congestion and Reports cough Gastrointestinal Gastrointestinal: Denies dysphagia and Reports odynophagia Neurologic Neurologic: Denies headache(s) Allergic/Immunologic Allergic/Immunologic: Denies lip swelling, Denies throat swelling and Denies tongue swelling Exam Const General: cooperative, healthy appearing, comfortable, no acute distress and not ill appearing Orientation: alert, awake and oriented x3 HENMT Head: normal to inspection and normocephalic Ears: hearing grossly normal bilaterally, external ears normal, TM's normal bilaterally and mastoids normal General nose exam: external nose normal and nares normal Face and sinus: normal facial exam Mouth: oral mucosae normal, lip normal, tongue normal, no audible dysphonia, no drooling and no trismus Throat: uvula midline, abnormal tonsil bilaterally erythema; no exudates and no hypertrophy, no peritonsillar masses and posterior oropharynx abnormal erythema Neck Neck: normal visual inspection, full ROM, no lymphadenopathy and no meningeal signs Resp Effort & Inspection: normal respiratory effort, able to speak in complete sentences and no stridor Auscultation: clear to auscultation bilaterally Cardio Rate: regular rate Rhythm: regular rhythm Heart Sounds: S1 normal and S2 normal Skin General skin exam: no rashes or lesions noted Course Vital Signs Vital signs: Vital Signs Pulse 93 H 12/12/24 08:09 Respiratory Rate 15 12/12/24 08:09 Blood Pressure 145/78 H 12/12/24 08:09 Pulse Oximetry 96 12/12/24 08:09 Pulse 93 H 12/12/24 08:14 Respiratory Rate 15 12/12/24 08:14 Blood Pressure 145/78 H 12/12/24 08:14 Blood Pressure Position Sitting 12/12/24 08:14 Pulse Oximetry 96 12/12/24 08:14 Oxygen Delivery Method Room Air 12/12/24 08:14 Oxygen Flow Rate 0 12/12/24 08:14 Pain Level 6 12/12/24 08:14 Medical Decision Making Exam consistent with upper respiratory infection versus pharyngitis more likely viral. no signs of deep neck space infection ( Retropharyngeal abscess, Julian's angina, Parapharyngeal space infection, Peritonsillar Abscess ([employer])) or Epiglottitis. Pt non toxic and stable. Will low Centor score will test for strep and given local prevalence will also perform flu and COVID testing. Pending results will give Motrin. Strep and viral testing negative. Will recommend conservative management along with return and follow-up precautions. After discussion of diagnosis and plan of care patient has no further needs, questions, or concerns and states clear understanding to return to the emergency department for any worsening symptoms. This documentation was generated using [employer] system, please disregard any oddities of phrase or misspellings. Quality:SDOH Health Related Social Needs: Health related social needs details None PFSH All Active Problems (Updated 12/12/24 @ 08:46 by Herve Owen NP) URI (upper respiratory infection) (Acute) Ex-smoker (Acute) Quit 09/05; Pack history is about 15 Murmur (Acute) COONEY (dyspnea on exertion) (Acute) Plantar fasciitis, bilateral (Acute) H. pylori infection (Acute) Hyperlipidemia (Acute) Hypothyroidism (acquired) (Acute) 10/02/2019 TSH 5.11. FT4 0.98 11/30/2019. Symptoms improved with 25 MCG Levoxyl dose Medical History Hand fracture, right surgery with pin placement, pin since removed Postmenopausal atrophic vaginitis Family history of uterine cancer pt's mom and several aunts and MGM. Her mom has a genetic mutation. Pt has not been tested. Postmenopausal bleeding Started 01/11 - normal sono and endo bx. Should call if returns Anxiety (10/18/17) Depression (10/18/17) Insomnia hx of sleepwalking. Surgical History History of esophagogastroduodenoscopy (~08/2023) with biopsies History of colonoscopy (~06/2023) with biopsies cryotherapy (~1994) due to abnormal pap so had cryotherapy [facility] Ligation of fallopian tube Family History Mother Diabetes Essential hypertension Heart disease Hyperlipidemia Neoplasm Uterine cancer 2017, carrier of [place] Syndrome Had hysterectomy, no chemo/radiation Asthma Father , Lymphoma Diabetes Anxiety Heart disease Neoplasm Stroke Grandfather Diabetes Grandmother Diabetes Stroke Maternal Aunt , Breast CA. Neoplasm Several aunts with uterine cancer as well Brother Diabetes Social History Smoking/Tobacco Use Status: Current-Occasional Tobacco Type: e-cigarettes Tobacco: How many years used: 17 Smokeless tobacco user: chewing tobacco Smoking risk assessment performed?: Yes Alcohol Intake: never Drug use: Never Substance use type: does not use and other Details: edibles Details: Stopped using due to causing acid reflux Household members: significant other Housing: house Communication Needs: None Education Level: college Pets and animals: Yes Pets and animals: cat(s) and dog(s) What is your relationship status?: living with partner Panel score (0-1 are the most socially isolated patients): 1 What type of physical activity do you participate in: walking Frequency: daily Do you feel safe at home: Yes Do you feel safe in your relationship?: Yes Additional Social history: unable to assess privately Female Reproductive History Menstrual Date of menopause: 11/14/19 History History 4 Para Hx # Term Pregnancies 3 Multiple births Hx # Pregnancies Ectopic pregnancies AB induced Hx Number of Living Children AB spontaneous
[2024-12-12] MEDS: Ibuprofen 600 MG TAB PO (08:29)
== END 2024-12-12 08:57 | disposition home or self-care (01) ==
PROVIDERS: Emergency Provider Nurse Practitioner Family; PCP Family Medicine
DX: J06.9 Acute upper respiratory infection, unspecified (principal); F17.290 Nicotine dependence, other tobacco product, uncomplicated
CPT/HCPCS: 87426; 87880; 99283; 87081

== ENCOUNTER 2025-07-08 08:20 | Emergency (ER) | payer MEDICAID, SELFPAY ==
[2025-07-08 08:24] VITALS: BP 128/76; PULSE 103; RESP 12; TEMP 37; O2SAT 96
[2025-07-08] MEDS: Acetaminophen 500 MG TAB 1000 MG PO (08:44)
--- NOTE | 2025-07-08 09:07 | W.ED.GENAD ---
Discharge Plan Disposition Patient Disposition: Home Condition: Good Discharge Details Clinical Impression: URI (upper respiratory infection) Primary Care Provider: Hieu Barry ED Provider: Alex Wright Home Meds and New Rx's Prescriptions: No Action naproxen 500 mg tablet 500 mg PO BID PRN (Reason: pain) Qty: 60 0RF diphenhydramine HCl [Z-Sleep] 25 MG capsule 25 mg PO PRN atorvastatin 20 mg tablet See Rx Instructions .ROUTE .COMPLEX Qty: 90 3RF Dose Instruction: TAKE ONE TABLET BY MOUTH AT BEDTIME Rx Instructions: TAKE ONE TABLET BY MOUTH AT BEDTIME clonidine HCl 0.1 mg tablet 0.1 mg PO QHS Qty: 60 2RF levothyroxine [Levoxyl] 25 mcg tablet 25 mcg PO DAILY Qty: 60 5RF Discharge Instructions Instructions: Upper Respiratory Infection ED Additional Instructions: At this time your strep test is negative and your COVID flu and RSV testing is negative. Thankfully there is no evidence to suggest pneumonia at this time. I suspect you have a viral etiology that is causing your current symptoms. Please take Tylenol and Motrin as needed for fever pain or sore throat. If your symptoms worsen, if your cough worsens, or you develop new symptoms this may represent a potential bacterial etiology that is developing, and you may require reassessment and reevaluation. If you notice any worsening of your symptoms, or any new symptoms such as vomiting, diarrhea, fever, chills, shortness of breath, chest pain, numbness, weakness, or fainting , please return immediately to the emergency department for reevaluation. Please follow up with your primary care provider as soon as possible for reassessment and reevaluation. As always, it was a pleasure participating in your medical care today. Referrals: Hieu Barry DO [Primary Care Provider, Medicine] HPI General Date/Time Provider Initiated Documentation: 07/08/25 08:22. HPI Narrative: This is a 49-year-old female with a past medical history of high cholesterol, hypothyroidism, who presents today for evaluation of runny nose, congestion, sore throat, myalgias. Patient states that 3 days ago on Saturday she developed the symptoms, she has had an associated mild fever with a Tmax of 100.3 this morning. She has also had a mild cough with some productive and clear yellow sputum. She denies headache or neck pain. She denies difficulty swallowing or drinking. She has taken ibuprofen and this is slightly improved her symptoms. 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 She has no chest pain shortness of breath otherwise. No other complaints at this time. Related Data Home Medications ?Medication ?Instructions ?Recorded ?Confirmed diphenhydramine HCl 25 mg capsule 25 mg PO PRN 11/15/16 07/08/25 (Z-Sleep) naproxen 500 mg tablet 500 mg PO BID PRN pain #60 tabs 03/02/24 07/08/25 atorvastatin 20 mg tablet See Rx Instructions .Route 04/15/25 07/08/25 .COMPLEX #90 tabs clonidine HCl 0.1 mg tablet 0.1 mg PO QHS #60 tabs 05/25/25 07/08/25 levothyroxine 25 mcg tablet 25 mcg PO DAILY #60 tabs 06/15/25 07/08/25 (Levoxyl) Previous Rx's ?Medication ?Instructions ?Recorded naproxen 500 mg tablet 500 mg PO BID PRN pain #60 tabs 03/02/24 atorvastatin 20 mg tablet See Rx Instructions .Route 04/15/25 .COMPLEX #90 tabs clonidine HCl 0.1 mg tablet 0.1 mg PO QHS #60 tabs 05/25/25 levothyroxine 25 mcg tablet 25 mcg PO DAILY #60 tabs 06/15/25 (Levoxyl) Allergies Allergy/AdvReac Type Severity Reaction Status Date / Time capsaicin Allergy Severe rash, Verified 07/08/25 08:25 difficulty breathing amoxicillin Allergy Intermediate Swelling/Ed Verified 07/08/25 08:25 stanley pantoprazole Allergy Intermediate swelling Verified 07/08/25 08:25 of hands banana Allergy itching Verified 07/08/25 08:25 eyes latex Allergy rash Verified 07/08/25 08:25 General Stated Complaint: Sorethroat JEANETTE: 4 Exam Narrative Exam Narrative: 1.Const: Well-nourished, Well-developed, appearing stated age 2.Eyes: PERRL, no conjunctival injection, and symmetrical lids. 3.ENT: Atraumatic external nose and ears. Moist MM. Neck: Symmetric, trachea midline, No thyromegaly. Mild erythema of the posterior oropharynx. No tonsillar enlargement. No evidence of airway compromise. No neck stiffness. 4.CVS: +S1/S2, Peripheral pulses 2+ and equal in all extremities. Brisk capillary refill in all extremities. 5.RESP: Unlabored respiratory effort. Clear to auscultation bilaterally. No wheezes rales or rhonchi 6.GI: Soft, Nontender/Nondistended, No hepatosplenomegaly. No guarding or rebound. 7.MSK: Normocephalic/Atraumatic, Extremities w/o deformity or ttp No cyanosis or clubbing, Normal movement of all extremities 8.Skin: Warm, Dry. No rashes or lesions. 9.Neuro: manager utility II-XII grossly intact. Sensation grossly intact, no focal neurologic deficits. 10.Psych: (AAO) x3. Appropriate mood and affect Course Vital Signs Vital signs: Vital Signs Temperature 37.0 C 07/08/25 08:24 Pulse 103 H 07/08/25 08:24 Respiratory Rate 12 07/08/25 08:24 Blood Pressure 128/76 07/08/25 08:24 Pulse Oximetry 96 07/08/25 08:24 Temperature 37.0 C 07/08/25 08:24 Temperature Source Oral 07/08/25 08:24 Pulse 103 H 07/08/25 08:24 Respiratory Rate 12 07/08/25 08:24 Blood Pressure 128/76 07/08/25 08:24 Pulse Oximetry 96 07/08/25 08:24 Oxygen Delivery Method Room Air 07/08/25 08:24 Oxygen Flow Rate 0 07/08/25 08:24 Lab/Test Results Lab/Test Results: 07/08/25 08:23 Tonsil - Not Specified Group A Streptococcus Culture - Pending POC Strep Test-MARY(Rapid) Start: 07/08/25 08:23 Freq: .Rapid Strep Test Status: Active Protocol: Document 07/08/25 08:35 JOSE LUIS (Rec: 07/08/25 08:38 JOSE LUIS [id number]) Strep test-MARY(Rapid)-POC POC-Strep test-MARY ( Negative Rapid) POC-Strep test-MARY (Rapid) Negative Medical Decision Making This is a 49-year-old female with a past medical history of high cholesterol, hypothyroidism, who presents today for evaluation of runny nose, congestion, sore throat, myalgias. Patient states that 3 days ago on [place] she developed the symptoms, she has had an associated mild fever with a Tmax of 100.3 this morning. She has also had a mild cough with some productive and clear yellow sputum. She denies headache or neck pain. She denies difficulty swallowing or drinking. She has taken ibuprofen and this is slightly improved her symptoms. 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 She has no chest pain shortness of breath otherwise. No other complaints at this time. Exam demonstrates mild erythema in the posterior oropharynx. No evidence of tonsillar enlargement. No signs of airway compromise. Symptoms most consistent with viral upper respiratory infection. Strep test was performed and this is negative. Will get COVID flu and RSV testing. Will give 1 g of Tylenol. Will monitor closely and reassess. Strep, COVID, flu, and RSV testing have returned negative. Patient remained stable. No evidence of pneumonia significant strep pharyngitis otitis media or other concerning or life-threatening etiology. Recommend continued supportive therapy. Discussed red flags which to return. I have extensively reviewed the treatment plan and discharge instructions with the patient. I have addressed all patient concerns at this time. The patient was made aware of what symptoms to monitor for that would warrant a return to the emergency department. Discussed the plan with the patient, they demonstrate verbal understanding and agreement with our assessment and plan at this time. The documentation in this chart was dictated using [employer] dictation software. Please excuse any dictation errors. Quality:SDOH Health Related Social Needs: Health related social needs details None PFSH All Active Problems (Updated 07/08/25 @ 09:21 by Alex Wright DO) URI (upper respiratory infection) (Acute) Ex-smoker (Acute) Quit 09/05; Pack history is about 15 Murmur (Acute) COONEY (dyspnea on exertion) (Acute) Plantar fasciitis, bilateral (Acute) H. pylori infection (Acute) Hyperlipidemia (Acute) Hypothyroidism (acquired) (Acute) 10/02/2019 TSH 5.11. FT4 0.98 11/30/2019. Symptoms improved with 25 MCG Levoxyl dose Medical History Hand fracture, right surgery with pin placement, pin since removed Postmenopausal atrophic vaginitis Family history of uterine cancer pt's mom and several aunts and MGM. Her mom has a genetic mutation. Pt has not been tested. Postmenopausal bleeding Started 01/11 - normal sono and endo bx. Should call if returns Anxiety (10/18/17) Depression (10/18/17) Insomnia hx of sleepwalking. Surgical History History of esophagogastroduodenoscopy (~08/2023) with biopsies History of colonoscopy (~06/2023) with biopsies cryotherapy (~1994) due to abnormal pap so had cryotherapy [facility] Ligation of fallopian tube Family History Mother Diabetes Essential hypertension Heart disease Hyperlipidemia Neoplasm Uterine cancer 2017, carrier of C[place] Syndrome Had hysterectomy, no chemo/radiation Asthma Father , Lymphoma Diabetes Anxiety Heart disease Neoplasm Stroke Grandfather Diabetes Grandmother Diabetes Stroke Maternal Aunt , Breast CA. Neoplasm Several aunts with uterine cancer as well Brother Diabetes Social History Smoking/Tobacco Use Status: Current-Occasional Tobacco Type: e-cigarettes Tobacco: How many years used: 17 Smokeless tobacco user: chewing tobacco Smoking risk assessment performed?: Yes Alcohol Intake: never Drug use: Never Substance use type: does not use and other Details: edibles Details: Stopped using due to causing acid reflux Household members: significant other Housing: house Communication Needs: None Education Level: college Pets and animals: Yes Pets and animals: cat(s) and dog(s) What is your relationship status?: living with partner Panel score (0-1 are the most socially isolated patients): 1 What type of physical activity do you participate in: walking Frequency: daily Do you feel safe at home: Yes Do you feel safe in your relationship?: Yes Additional Social history: unable to assess privately Female Reproductive History Menstrual Date of menopause: 11/14/19 History History 4 Para Hx # Term Pregnancies 3 Multiple births Hx # Pregnancies Ectopic pregnancies AB induced Hx Number of Living Children AB spontaneous
[2025-07-08 09:24] LABS: COVID-19 PCR Negative (Negative); RSV PCR Negative (Negative)
[2025-07-08 09:41] VITALS: BP 128/76; PULSE 103; RESP 12; TEMP 37; O2SAT 96
[2025-07-08 09:46] VITALS: PULSE 65; O2SAT 96
== END 2025-07-08 09:47 | disposition home or self-care (01) ==
LOC: ER 09:38
PROVIDERS: Emergency Provider Student in an Organized Health Care Education/Training Program; PCP Family Medicine
DX: J06.9 Acute upper respiratory infection, unspecified (principal)
CPT/HCPCS: 99283; 99282; 87880; 87637; 87081

== ENCOUNTER 2025-07-28 00:04 | Outpatient (CLI) | payer MEDICAID, SELFPAY ==
[2025-07-28 08:40] LABS: HCT 41.5 % (36.0-46.0); HGB 13.3 g/dL (11.2-15.7); MCH 28.9 pg (27.0-33.0); MCHC 32.0 % (32.0-36.0); MCV 90 fL (80-95); MPV 9.6 fL (8.0-11.0); Platelet Count 325 10^3/uL (130-400); RBC 4.60 10^6/uL (3.93-5.22); RDW 12.4 % (11.7-14.6); RDW-SD 41.1 fL; WBC 6.66 10^3/uL (4.4-10.8)
[2025-07-28 09:11] LABS: Anion Gap 7.7 mmol/L (3-11); BUN 14 mg/dL (7-18); CO2 30.3 mmol/L (21.0-32.0); Calcium 9.6 mg/dL (8.5-10.1); Chloride 103 mmol/L (98-107); Estimated GFR 89.15 (mL/min/1.73m2); Glucose 84 mg/dL (74-106); Potassium 4.1 mmol/L (3.5-5.1); Sodium 141 mmol/L (136-145); TSH (W/Ref FT4) 3.06 uIU/mL (0.36-3.74)
== END 2025-07-28 00:05 | disposition home or self-care (01) ==
PROVIDERS: PCP Family Medicine; Visit Provider Family Medicine
DX: R04.0 Epistaxis (principal); E03.9 Hypothyroidism, unspecified; E83.52 Hypercalcemia
CPT/HCPCS: 36415; 80048; 85027; 84443

== ENCOUNTER 2025-08-03 00:17 | Outpatient (CLI) | payer MEDICAID, SELFPAY ==
--- NOTE | 2025-08-03 08:33 | DI.MAMMO_ITS ---
Exam(s) MAMMO SCREENING EXAM: MAMMO SCREENING CLINICAL HISTORY: screening,z12.39 TECHNIQUE: Bilateral full field digital CC and MLO mammographic images were obtained with 3D tomosynthesis and utilizing computer aided detection (CAD). COMPARISON: Comparison is made with prior examinations. FINDINGS: Masses/Architectural Distortion: No suspicious masses or areas of architectural distortion are present. Microcalcifications: No suspicious pleomorphic-type are seen. Skin Thickening/Nipple Retraction: None. IMPRESSION: 1. No significant interval change with no specific features of malignancy noted. 2. Unless there is more urgent need, screening mammography is recommended, as per [place] [employer] guidelines. BI-RADS Category 1 - Negative Breast Density - Category C - The breast are heterogeneously dense, which may obscure small masses. Breast density Category C or D implies that the patient has dense breast tissue. Dense breast tissue can make it harder to find cancer on a mammogram. Dense breast tissue is also associated with an increased risk of breast cancer. This information about the result of the mammogram report was provided to the patient to raise their awareness. Use this report when you speak with the patient about their risks for breast cancer, which includes their family history. At that time, you may recommend additional screening tests (Ultrasound or MRI) as these tests may add significant information. A negative radiographic report should not delay biopsy if a dominant or clinically suspicious mass is present. Up to ten percent of cancers are not identified on mammography. A negative report may reinforce clinical impression. Adenosis and dense breasts may obscure an underlying neoplasm. False positive reports average 6 to 10%. Patient will receive a letter notifying them of these results.
== END 2025-08-03 00:37 ==
LOC: DI 00:17
PROVIDERS: PCP Family Medicine; Visit Provider Family Medicine
DX: Z12.31 Encounter for screening mammogram for malignant neoplasm of breast (principal)
CPT/HCPCS: 77063; 77067